=== PATIENT | female | born 2005 | race Caucasian/White ===

== ENCOUNTER 2025-01-14 08:09 | Emergency (ER) | payer MEDICAID, SELFPAY ==
--- OUTSIDE RECORDS SUMMARY | 2023-09-05 06:00 | XMS_ITS | Continuity of Care Document ---
Author Organization [facility] Address [id number] [address] Phone Care Team Providers Care Chrome Worker Name Role Phone Abhishek Loera DDS Unavailable Unavailable Allergies, Adverse Reactions, Alerts Substance Reaction Status Criticality No Known Allergies Active No Inform ation Medications Medication Instructions Dosage Effective Dates (start - stop) Status Comments Differin 0.1 % topical gel apply by topical route every day a thin layer to the affected area(s) before bedtime 0.00 - Active lamotrigine 200 mg tablet take 1 tablet by oral route 2 times every day 200 MG - Active Procedures Procedure Date Bitewings Four Films Intraoral Periapical First Film Intraoral Periapical Each Additional Film Intraoral Periapical Each Additional Film Intraoral Periapical Each Additional Film Treatment Plan Complete Prophylaxis Adult Topical Fluoride Varnish; Therapeutic Ap plication Periodic Oral Evaluation Established Patient Caries Moderate Risk Exempt From Sealant Measure Resin-Based Composite Two Surfaces, Anterior EDR Approval Note Bitewings Four Films Periodic Oral Evaluation Established Patient Prophylaxis Adult Topical Fluoride Varnish; Therapeutic Ap plication EDR Approval Note Resin-Based Composite One Surface, Posterior Panoramic Film Bitewings Four Films Periodic Oral Evaluation Established Patient Prophylaxis Adult Topical Fluoride Varnish; Therapeutic Ap plication Resin-Based Composite One Surface, Posterior Self-management Goals Reviewed Oral Hygiene Instructions Nutritional Counseling For Control Of De ntal Disea Exempt From Sealant Measure Bitewings Four Films Periodic Oral Evaluation Established Patient Prophylaxis Adult EDR Approval Note Bitewings Four Films Prophylaxis Adult Periodic Oral Evaluation Established Patient Treatment Plan Complete Caries Moderate Risk Exempt From Sealant Measure EDR Approval Note Resin-Based Composite One Surface, Posterior Resin-Based Composite One Surface, Posterior EDR Approval Note Caries High Risk Panoramic Film Bitewings Four Films Intraoral Periapical First Film Intraoral Periapical Each Additional Film Intraoral Periapical Each Additional Film Intraoral Periapical Each Additional Film Prophylaxis Adult Topical Fluoride Varnish; Therapeutic Ap plication Periodic Oral Evaluation Established Patient EDR Approval Note New Caries Lesion Caries High Risk Resin-Based Composite One Surface, Posterior Resin-Based Composite One Surface, Posterior Resin-Based Composite One Surface, Posterior Resin-Based Composite One Surface, Anterior EDR Approval Note Periodic Oral Evaluation Established Patient Bitewings Four Films Prophylaxis Adult Topical Fluoride Varnish; Therapeutic Ap plication EDR Approval Note Self-management Goals Reviewed Oral Hygiene Instructions Nutritional Counseling For Control Of De ntal Disea Caries Moderate Risk Exempt From Sealant Measure Resin-Based Composite One Surface, Posterior EDR Approval Note Bitewings Four Films Intraoral Periapical First Film Intraoral Periapical Each Additional Film Intraoral Periapical Each Additional Film Intraoral Periapical Each Additional Film Prophylaxis Adult Topical Fluoride Varnish; Therapeutic Ap plication Self-management Goals Reviewed Oral Hygiene Instructions Nutritional Counseling For Control Of De ntal Disea Caries High Risk Exempt From Sealant Measure Periodic Oral Evaluation Established Patient EDR Approval Note PATIENT LEFT W/O BEING SEEN Bitewings Four Films Prophylaxis Child Topical Fluoride Varnish; Therapeutic Ap plication Periodic Oral Evaluation Established Patient Caries Low Risk EDR Approval Note Resin-Based Composite One Surface, Posterior EDR Approval Note Resin-Based Composite One Surface, Posterior Sealant Per Tooth Sealant Per Tooth Sealant Per Tooth Sealant Per Tooth Oral Hygiene Instructions Nutritional Counseling For Control Of De ntal Disea Caries Moderate Risk EDR Approval Note Panoramic Film Bitewings Four Films Intraoral Periapical First Film Intraoral Periapical Each Additional Film Intraoral Periapical Each Additional Film Prophylaxis Child Topical Fluoride Varnish; Therapeutic Ap plication Comprehensive Oral Evaluatio n New Or Established Oral Hygiene Instructions Nutritional Counseling For Control Of De ntal Disea Caries Moderate Risk EDR Approval Note Advance Directives Directive Yes / No Effective Date File Name No Information Encounters Encounter Description Practice Location Reason(s) For Visit Diagnoses Date Provider Providers Copied on Encounter [facility], [id number] [place], [id number], [place] tel:[phone] [facility] Encounter for dental exam and cleaning w/o abnormal findings 4 Evaristo Weiss. [address] [place], [address], [place]. tel:[phone] Referring Provider: Abhishek Loera, [address] [place], [address]. tel:[phone] [facility], [id number] [place]65483JM[place], [address], [place] tel:[phone] [facility] No Information 3 Evaristo Weiss. [address] [place], [address], [place]. tel:[phone] Referring Provider: Abhishek Loera, [address] [place], [address]. tel:[phone] sulting Provider: Susie Valencia, [address] [place], [address] . tel:[phone] [facility], [id number] 779717UJ[place], [address], [place] tel:[phone] [facility] No Information 3 Evaristo Weiss. [address] [place], [address], [place]. tel:[phone] Referring Provider: Abhishek Loera, [address] [place], [address]. tel:[phone] [facility], [address] [id number] 762177VZ[place], [address], [place] tel:[phone] [facility] No Information 2 Chalino Conteh. [facility] [place], [address], [place]. tel:[phone] Referring Provider: Yady Allred, [address] [place] [address], [address]. tel:[phone] [facility], [id number] 458587R[place], [address], [place] tel:[phone] [facility] No Information 2 Winnie Salgado. [address], [place], [address], [place]. tel:[phone] Referring Provider: Damian Zhou, [address] [place], [address] . tel:[phone] [facility], [address] [id number] 669[place], [address], [place] tel:[phone] [facility] Encounter for dental exam and cleaning w/o abnormal findings 2 rEik Escobar. [address] [place], [address], [place]. tel:[phone] Referring Provider: Shawn Trimble, [address] [place], [address]. tel:[phone] sulting Provider: Susie Valencia, [address] [place], [address] . tel:[phone] [facility], [address] [id number] 334526XY[place], [address], [place] tel:[phone] [facility] No Information 2 Erik Escobar. [address] [place], [address], [place]. tel:[phone] Referring Provider: Shawn Trimble, [address] [place], [address]. tel:[phone] [facility], [address] [id number] 782288NC-Cl [place], [address], [place] tel:[phone] [facility] Encounter for dental exam and cleaning w/o abnormal findings 1 Erik Escobar. [address] [place], [address], [place]. tel:[phone] Referring Provider: Shawn Trimble, [address] [place], [address]. tel:[phone] sulting Provider: Chantal Kumar, [address] [place], [address] . tel:[phone] [facility], [address] [id number] 961087UK-[place], [address], [place] tel:[phone] [facility] Encounter for dental exam and cleaning w/o abnormal findings 0 No Information [facility], [address] [id number] 126506DJ-[place], [address], [place] tel:[phone] [facility] Encounter for dental exam and cleaning w/o abnormal findings 0 No Information [facility], [address] [id number] 745544GC-[place], [address], [place] tel:[phone] [facility] Encounter for dental exam and cleaning w/o abnormal findings 0-201 9 Erik Escobar. [address] [place], [address], . tel:[phone] Referring Provider: Shawn Trimble, [address] [place], [address]. tel:[phone] [facility], [address] [id number] 720313VL-[place], [address], [place] tel:[phone] [facility] Encounter for dental exam and cleaning w/o abnormal findings 9 Erik Escobar. [address] [place], [address], [place]. tel:[phone] Referring Provider: Shawn Trimble, [address] [place], [address]. tel:[phone] [facility], [address] [id number] 771638VB-Ir[place], [address], [place] tel:[phone] [facility] Encounter for dental exam and cleaning w/o abnormal findings 9 Winnie Salgado. [address], [place], [address], [place]. tel:[phone] Referring Provider: Damian Zhou, [address] [place], [address] . tel:[phone] [facility], [address] [id number] 074191CX-[place], [address], [place] tel:[phone] [facility] Encounter for dental exam and cleaning w/o abnormal findings 9 Winnie Salgado. [address], [place], [address], [place]. tel:[phone] Referring Provider: Damian Zhou, [address] [place], [address] . tel:[phone] [facility], [address] [id number] 097904AT-[place], [address], [place] tel:[phone] [facility] Encounter for dental exam and cleaning w/o abnormal findings 8 Winnie Salgado. [address], [place], [address], [place]. tel:[phone] Referring Provider: Damian Zhou, [address] [place], [address] . tel:[phone] [facility], [address] [id number] 782881XA-[place], [address], [place] tel:[phone] [facility] Encounter for dental exam and cleaning w/o abnormal findings 8 Rick Gant. [address] [place] [address], [address], [place]. tel:[phone] Referring Provider: Stalin Cabrera, [address] [place] [address], [address]. tel:[phone] [facility], [address] [id number] 444987RB-[place], [address], [place] tel:[phone] [facility] Encounter for dental exam and cleaning w/o abnormal findings 8 Rick Gant. [address] [place] [address], [address], [place]. tel:[phone] Referring Provider: Stalin Cabrera, [address] [place] [address], [address]. tel:[phone] [facility], [address] [id number] 130186SV-[place], [address], [place] tel:[phone] [facility] Encounter for dental exam and cleaning w/o abnormal findings 8 Rick Gant. [address] [place] [address], [address], [place]. tel:[phone] Referring Provider: Stalin Cabrera, [address] [place] [address], [address]. tel:[phone] [facility], [address] [id number] 083080VX-[place], [address], tel:[phone] [facility] Encounter for dental exam and cleaning w/o abnormal findings 7 Rick Gant. [address] [place] [address], [address], [place]. tel:[phone] Referring Provider: Stalin Cabrera, [address] [place] [address], [address]. tel:[phone] Family History Family Member Type Diagnosis Age At Onset Mother Problem (finding) Payers Payer name Insurance type Covered libertarian ID Authornikkie seay(s) D [employer] [id number] Social History Type Description Quantity Date Captured Comments Alcohol Use Details No Caffeine Use Details Unknown Tobacco Use Status No Information Smoking Status No Information Sex Female Sexual Orientation Decline To Specify Gender Identity Female Chief Complaint And Reason For Visit No Information Reason For Referral Reason For Referral No Information History Of Present Illness Encounter Date Complaint History Of Prese nt Illness No Information Functional Status Date Functional Assessmen t No Information Instructions Date Instruction Additional Infor mation Lifestyle education Related to D ental Examination Lifestyle education Related to D ental Examination Lifestyle education Related to D ental Examination Lifestyle education Related to D ental Examination Lifestyle education Related to D ental Examination Lifestyle education Related to D ental Examination Lifestyle education Related to D ental Examination Lifestyle education Related to D ental Examination Lifestyle education Related to D ental Examination Lifestyle education Related to D ental Examination Lifestyle education Related to D ental Examination Lifestyle education Related to D ental Examination Assessments Type Assessment Date No Information Patient Care Teams Name Effective Dates (start - stop) Status Members No Information
--- OUTSIDE RECORDS SUMMARY | 2023-09-10 02:45 | XMS_ITS ---
Author Organization [facility] Address [address] [place] [id number] Care Team Providers Care Gauger Chief Name Role Phone Harriett Camacho Primary Care Provider Ila Dumont [phone] REASON FOR VISIT Behavioral Health Social History Sex Assigned At : Social History Observation Description Sex Assigned At Female Encounters Encounter Location Date Provider Diagnosis [facility] [address] [address] 09/10/2023 Ila Dumont Plan Of Treatment No Information Progress Notes * Radha JUÁREZDOB:2004 (19 yo F)Acc No.[id number]:09/10/2023 Patient: Radha LEROY Provider: Estephanie DUMONT LPC :2005 A ge:18 Y S ex:Female Date:09/10/2023 Address:[address], [place] Pcp:Harriett Camacho Subjective: * Chief Complaints: * 1 . Behavioral Health. * Medical History: Objective: * Vitals: Assessment: Plan: * Treatment: * Billing Information: * Visit Code: * Procedure Codes: * Electronic signature of Shanita Dumont LPC on 01/14/2025 at 08:25 AM CDT Sign off status: Pending * Provider: Estephanie DUMONT LPC Date: 0 09/10/2023 Generated for Donnie zaldivar/Onel/Mari on: 0 01/14/2025 08:25 AM CDT
--- OUTSIDE RECORDS SUMMARY | 2023-09-17 02:45 | XMS_ITS ---
Author Organization [facility] Address [address] [place] [address] Care Team Providers Care Algorithm Design Engineer Name Role Phone Harriett Camacho Primary Care Provider Ila Dumont [phone] REASON FOR VISIT Behavioral Health Social History Sex Assigned At : Social History Observation Description Sex Assigned At Female Encounters Encounter Location Date Provider Diagnosis [facility] [address] [facility] [address] 09/17/2023 Ila Dumont Plan Of Treatment No Information Progress Notes * Radha JUÁREZDOB:2004 (19 yo F)Acc No.[id number]:09/17/2023 Patient: Radha LEROY Provider: Estephanie DUMONT LPC :2005 A ge:18 Y S ex:Female Date:09/17/2023 Address:[address], [place] Pcp:Harriett Camacho Subjective: * Chief Complaints: * 1 . Behavioral Health. * Medical History: Objective: * Vitals: Assessment: Plan: * Treatment: * Billing Information: * Visit Code: * Procedure Codes: * Electronic signature of Shanita Dumont LPC on 01/14/2025 at 08:24 AM CDT Sign off status: Pending * Provider: Estephanie DUMONT LPC Date: 0 09/17/2023 Generated for Donnie zaldivar/Onel/Mari on: 0 01/14/2025 08:24 AM CDT
--- OUTSIDE RECORDS SUMMARY | 2025-01-14 08:25 | XMS_ITS | Encounter Summary ---
Author Organization [facility] Address [address] [place] [address] Care Team Providers Care Datapower Consultant Name Role Phone Al Camarena MD Primary Care Provider [phone] Encounter Details Date Type Department Care Team (Late st Contact Info) Description 05/05/2007 Outpatient Historical [facility] Family Medicine [address] Kapoor [address] [place] [phone] Al Camarena MD [address] [place] [address] Dr Kapoor [address] [place] [address] Social History Tobacco Use Types Packs/Day Years Used Date Smoking Tobacco: Never Assessed Comments Unknown Sex and Gender Information Value Date Recorded Sex Assigned at Not on file Legal Sex Female 4:07 AM CITY ADMINISTRATOR Gender Identity Not on file Sexual Orientation Not on file documented as of this encounter Plan of Treatment Not on file documented as of this encounter Visit Diagnoses Not on filedocumented in this encounter Care Teams Datapower Consultant Relationship Specialty Start Date End Date Al Camarena MD [address] [place] [address] Dr Kapoor [address] [place] [address] PCP - General 05/05/07 documented as of this encounter
--- OUTSIDE RECORDS SUMMARY | 2025-01-14 08:25 | XMS_ITS | Encounter Summary ---
Author Organization [facility] Address [address] [place] [address] Care Team Providers Care Cigar Brander Name Role Phone Al Camarena MD Primary Care Provider [phone]- [phone] Encounter Details Date Type Department Care Team (Late st Contact Info) Description 04/08/2006 Outpatient Historical [facility] Medicine [place] [place] [address] Dr. Kapoor [address] [place] [phone] Al Camarena MD [address] [place] [phone] Acute Upper Respiratory Infections of Unspecified Site (Primary Dx); Viral Infection NEC Social History Tobacco Use Types Packs/Day Years Used Date Smoking Tobacco: Never Assessed Comments Unknown Sex and Gender Information Value Date Recorded Sex Assigned at Not on file Legal Sex Female 4:07 AM SHOT LIGHTER Gender Identity Not on file Sexual Orientation Not on file documented as of this encounter Plan of Treatment Not on file documented as of this encounter Visit Diagnoses Diagnosis Acute upper respiratory infections of unspecified site- Primary Other specified viral infection, in conditions classified elsewhere and of unspecified site documented in this encounter Care Teams Cigar Brander Relationship Specialty Start Date End Date Al Camarena MD [address] [place] [address] Dr [address] [place] [address] PCP - General 05/05/07 documented as of this encounter
--- OUTSIDE RECORDS SUMMARY | 2025-01-14 08:25 | XMS_ITS | Patient Health Record ---
Author Organization [facility] Address [address] [facility] [place] [id number] Care Team Providers Care Planning Division Superintendent Name Role Phone Harriett Camacho Primary Care Provider Ila Mora Unavailable [phone] Reason For Referral No Information Social History Tobacco Use: Social History Observation Description Date Details (start date - stop date) Never Smoker NA - NA Sex Assigned At : Social History Observation Description Sex Assigned At Female Tobacco Use/Smoking Question Answer Notes Are you a nonsmoker Alcohol Screen (Audit-C) Question Answer Notes Did you have a drink containing alcohol in the p ast year? No Points 0 Interpretation Negative Problems Problem Type SNOMED Code ICD Code Onset Dates Problem Status W/U Status Risk Notes Problem Generalized anxiety disorder (F41.1) Active confirmed Problem Social anxiety disorder (29446073) Social anxiety disorder (F40.10) Active confirmed Problem Depressive disorder (disorder) (76854895) Depression, unspecified depression type (F32.A) Active confirmed Plan Of Treatment No Information Insurance Providers Payer Name Payer Address Payer Phone Subscriber Number Group Number Insured Name Patient Relationship to Insured Coverage Start Date Coverage End Date [employer] [address] [address] [place] [id number] [phone] [id number] Radha Juárez Self - patient is the insured Medical (General) History Surgical History Surgery Date(Month/Year) appendectomy Hospitalization History Reason Date(Month/Year) appendectomy
--- OUTSIDE RECORDS SUMMARY | 2025-01-14 08:25 | XMS_ITS | Encounter Summary ---
Author Organization [facility] Address [address] [place] [address] Care Team Providers Care Banquet Houseperson Name Role Phone Al Camarena MD Primary Care Provider +1- [phone] Encounter Details Date Type Department Care Team (Late st Contact Info) Description 2005 Outpatient Historical [facility] Family Medicine [place] [place] [address] Dr. Kapoor [address] [place] [phone] Al Camarena MD [address] [place] [address] Dr Kapoor [address] [place] [phone] ACUTE BRONCHITIS (Primary Dx); THRUSH Social History Tobacco Use Types Packs/Day Years Used Date Smoking Tobacco: Never Assessed Comments Unknown Sex and Gender Information Value Date Recorded Sex Assigned at Not on file Legal Sex Female 4:07 AM CANOPY STRINGER Gender Identity Not on file Sexual Orientation Not on file documented as of this encounter Plan of Treatment Not on file documented as of this encounter Visit Diagnoses Diagnosis Acute bronchitis- Primary Candidiasis of mouth documented in this encounter Care Teams Banquet Houseperson Relationship Specialty Start Date End Date Al Camarena MD [address] [place] [address] Dr Kapoor [address] [place] [address] PCP - General 05/05/07 documented as of this encounter
--- OUTSIDE RECORDS SUMMARY | 2025-01-14 08:25 | XMS_ITS | Encounter Summary ---
Author Organization [facility] Address [address] [place] [address] Care Team Providers Care Heel Nailing Machine Operator Name Role Phone Al Camarena MD Primary Care Provider +1- [phone] Encounter Details Date Type Department Care Team (Latest Contact Info) Description 2005 Outpatient Historical [facility] Family Medicine [address] Kapoor [address] [place] [phone] Al Camarena MD [address] [place] [phone] [facility] (Primary Dx); Need for Prophylactic Vaccination with Unspecified Combined Vaccine; Vaccine for viral hepatitis; Vaccin Strep Pneumoniae Social History Tobacco Use Types Packs/Day Years Used Date Smoking Tobacco: Never Assessed Comments Unknown Sex and Gender Information Value Date Recorded Sex Assigned at Not on file Legal Sex Female 4:07 AM CLOTH BEAMER Gender Identity Not on file Sexual Orientation Not on file documented as of this encounter Plan of Treatment Not on file documented as of this encounter Visit Diagnoses Diagnosis [facility] health care- Primary Health supervision of foundling Need for prophylactic vaccination with unspecified combined vaccine Vaccine for viral hepatitis Need for prophylactic vaccination and inoculation against viral hepatitis Need for prophylactic vaccination against Streptococcus pneumoniae (pneumococcus) Need for prophylactic vaccination against streptococcus pneumoniae (pneumococcus) documented in this encounter Care Teams Heel Nailing Machine Operator Relationship Specialty Start Date End Date Al Camarena MD [address] [place] [address] [address] [place] [address] PCP - General 05/05/07 documented as of this encounter
--- OUTSIDE RECORDS SUMMARY | 2025-01-14 08:25 | XMS_ITS | Encounter Summary ---
Author Organization [facility] Address [address] [facility] Attn: Epic Prelude ADT RICHARD GONZALEZ [id number] Care Team Providers Care Logistics Planning Engineer Name Role Phone Al Camarena MD Primary Care Provider [phone] Encounter Details Date Type Department Care Team (Late st Contact Info) Description 2005 Inpatient Historical [facility]/DELIVERY (Primary Dx) Social History Tobacco Use Types Packs/Day Years Used Date Smoking Tobacco: Never Assessed Comments Unknown Sex and Gender Information Value Date Recorded Sex Assigned at Not on file Legal Sex Female 4:07 AM HOSIERY LOOPER Gender Identity Not on file Sexual Orientation Not on file documented as of this encounter Plan of Treatment Not on file documented as of this encounter Procedures Procedure Name Priority Date/Time Associated Diagnosis Comments BASIC CHEM/BILI PROFILE Routine 2005 4:03 AM HOSIERY LOOPER DIFFERENTIAL, MANUAL Routine 2005 4:03 AM HOSIERY LOOPER CBC WITH DIFFERENTIAL Routine 2005 4:03 AM HOSIERY LOOPER METABOLIC SCREEN Routine 2005 3:26 AM HOSIERY LOOPER POC GLUCOSE Routine 2005 5:53 PM HOSIERY LOOPER POC GLUCOSE Routine 2005 12:10 PM HOSIERY LOOPER DIFFERENTIAL, MANUAL Routine 2005 6:07 AM HOSIERY LOOPER CBC WITH DIFFERENTIAL Routine 2005 6:07 AM HOSIERY LOOPER BASIC METABOLIC PANEL Routine 2005 5:50 AM HOSIERY LOOPER POC GLUCOSE Routine 2005 5:43 AM HOSIERY LOOPER POC GLUCOSE Routine 2005 11:54 PM HOSIERY LOOPER BASIC METABOLIC PANEL Routine 2005 6:17 PM HOSIERY LOOPER POC GLUCOSE Routine 2005 6:12 PM HOSIERY LOOPER POC GLUCOSE Routine 2005 2:56 PM HOSIERY LOOPER POC GLUCOSE Routine 2005 11:35 AM HOSIERY LOOPER BASIC CHEM/BILI PROFILE Routine 2005 3:40 AM HOSIERY LOOPER DIFFERENTIAL, MANUAL Routine 2005 3:40 AM HOSIERY LOOPER CBC WITH DIFFERENTIAL Routine 2005 3:40 AM HOSIERY LOOPER POC GLUCOSE Routine 2005 3:38 AM HOSIERY LOOPER POC GLUCOSE Routine 2005 8:52 PM HOSIERY LOOPER DIFFERENTIAL, MANUAL Routine 2005 5:02 PM HOSIERY LOOPER CBC WITH DIFFERENTIAL Routine 2005 5:02 PM HOSIERY LOOPER TRIGLYCERIDE Routine 2005 5:02 PM HOSIERY LOOPER PHOSPHORUS Routine 2005 5:02 PM HOSIERY LOOPER MAGNESIUM LEVEL Routine 2005 5:02 PM HOSIERY LOOPER BASIC METABOLIC PANEL Routine 2005 5:02 PM HOSIERY LOOPER POC GLUCOSE Routine 2005 4:53 PM HOSIERY LOOPER POC GLUCOSE Routine 2005 11:35 AM HOSIERY LOOPER BASIC CHEM/BILI PROFILE Routine 2005 4:52 AM HOSIERY LOOPER DIFFERENTIAL, MANUAL Routine 2005 4:52 AM HOSIERY LOOPER CBC WITH DIFFERENTIAL Routine 2005 4:52 AM HOSIERY LOOPER POC GLUCOSE Routine 2005 4:39 AM HOSIERY LOOPER POC GLUCOSE Routine 2005 11:18 PM HOSIERY LOOPER POC GLUCOSE Routine 2005 7:53 PM HOSIERY LOOPER POC GLUCOSE Routine 2005 6:35 PM HOSIERY LOOPER DIFFERENTIAL, MANUAL Routine 2005 6:00 PM HOSIERY LOOPER CBC WITH DIFFERENTIAL Routine 2005 6:00 PM HOSIERY LOOPER MAGNESIUM LEVEL Routine 2005 6:00 PM HOSIERY LOOPER POC GLUCOSE Routine 2005 5:39 PM HOSIERY LOOPER POC GLUCOSE Routine 2005 4:49 PM HOSIERY LOOPER documented in this encounter Results * (ABNORMAL) DIFFERENTIAL, MANUAL (2005 4:03 AM HOSIERY LOOPER) NEUTROPHILS, SEG 59(H) 15 - 35 % INT ERFACE SYSTEM LYMPHOCYTES 26(L) 43 - 53 % INTERFAC E SYSTEM MONOCYTE 14(H) 8 - 9 % INTERFACE SYSTEM EOSINOPHILS 1 0 - 3 % INTERFAC E SYSTEM PLATELET EST. Normal Normal INTERF NAKUL SYSTEM RBC MORPHOLOGY Abnormal(A ) Normal INTERFACE SYSTEM ANISOCYTOSIS 1+(A) None Seen INTERFA CE SYSTEM POIKILOCYTES 1+(A) None Seen INTERFA CE SYSTEM POLYCHROMASIA 1+(A) None Seen INTERF NAKUL SYSTEM 2005 4:03 AM HOSIERY LOOPER Reta Mcgowan MD HEMATOLOGY O RDERABLES COM Final Result Performing Organization Address City/[facility] Co de Phone Number INTERFACE SYSTEM Refer to clinic/hospital department * (ABNORMAL) PANEL 1 (2005 4:03 AM HOSIERY LOOPER) TRIGLYCERIDE 55 0 - 158 mg/dL INTERFACE SYSTEM GLUCOSE 70 50 - 80 mg/dL INTERFACE SYSTEM BUN 4(L) 7 - 17 mg/dL INTERFACE SYSTEM CREATININE 0.6 0.2 - 0.7 mg/dL INTERFACE SYSTEM SODIUM 136 136 - 145 mEq/L INTERFACE SYSTEM POTASSIUM 5.3(H) 3.5 - 5.0 mEq/L INTERFACE SYSTEM CO2 23 22 - 32 mmol/l INTERFACE SYSTEM CHLORIDE 107 95 - 110 mEq/L INTERFACE SYSTEM CALCIUM 10.0 8.4 - 10.5 mg/dL INTERFACE SYSTEM PHOSPHORUS 8.1 4.2 - 9.0 mg/dL INTERFACE SYSTEM MAGNESIUM 2.7(H) 1.6 - 2.3 mg/dL INTERFACE SYSTEM ANION GAP 11 9 - 20 mEq/L INTERFACE SYSTEM OSMOLALITY, CALCULATED 278 275 - 295 mOsm/Kg INTERFACE SYSTEM 2005 4:03 AM HOSIERY LOOPER Reta Mcgowan MD CHEMISTRY OR DERABLES Final Result Performing Organization Address City/[facility]/ZIP Co de Phone Number INTERFACE SYSTEM Refer to clinic/hospital department * (ABNORMAL) CBC WITH DIFFERENTIAL (2005 4:03 AM HOSIERY LOOPER) WBC 11.1 9.4 - 34.0 K/ul INTERFACE SYSTEM RBC 4.08 3.60 - 6.60 Mil/ul INTERFACE SYSTEM HEMOGLOBIN 15.9 14.2 - 17.2 g/dL INTERFACE SYSTEM HEMATOCRIT 46.9(L) 47.0 - 57.0 % INTERFACE SYSTEM MCV 115.0 95.0 - 118.0 Fl INTERFACE SYSTEM MCH 39.0(H) 31.0 - 37.0 pg INTERFACE SYSTEM MCHC 33.9 31.0 - 37.0 g/dL INTERFACE SYSTEM RDW 15.6(H) 11.0 - 14.5 % INTERFACE SYSTEM PLATELETS 261 140 - 440 K/ul INTERFACE SYSTEM MPV 10.4 8.9 - 12.8 Fl INTERFACE SYSTEM 2005 4:03 AM HOSIERY LOOPER us Reta Mcgowan MD HEMATOLOGY O RDERABLES Final Result Performing Organization Address [facility] Co de Phone Number INTERFACE SYSTEM Refer to clinic/hospital department * METABOLIC SCREEN (2005 3:26 AM HOSIERY LOOPER) PKU Sent to Reference Lab INTERFACE SYSTEM 2005 3:26 AM HOSIERY LOOPER us Reta Mcgowan MD CHEMISTRY OR DERABLES Final Result Performing Organization Address [facility] Co de Phone Number INTERFACE SYSTEM Refer to clinic/hospital department * POC GLUCOSE (2005 5:53 PM HOSIERY LOOPER) GLUCOSE POC 70 50 - 80 mg/dL INTERFACE SYSTEM 2005 5:53 PM HOSIERY LOOPER us Reta Mcgowan MD POINT OF CAR E TESTING Final Result Performing Organization Address [facility]/ZIP Co de Phone Number INTERFACE SYSTEM Refer to clinic/hospital department * (ABNORMAL) POC GLUCOSE (2005 12:10 PM HOSIERY LOOPER) GLUCOSE POC 86(H) 50 - 80 mg/dL INTERFACE SYSTEM 2005 12:1 0 PM HOSIERY LOOPER us Reta Mcgowan MD POINT OF CAR E TESTING Final Result Performing Organization Address [facility] de Phone Number INTERFACE SYSTEM Refer to clinic/hospital department * (ABNORMAL) DIFFERENTIAL, MANUAL (2005 6:07 AM HOSIERY LOOPER) NEUTROPHILS, SEG 50(H) 15 - 35 % INT ERFACE SYSTEM BANDS 6(L) 10 - 18 % INTERFACE SYSTEM LYMPHOCYTES 29 26 - 36 % INTERFAC E SYSTEM MONOCYTE 9(H) 5 - 6 % INTERFACE SYSTEM EOSINOPHILS 6(H) 0 - 3 % INTERFAC E SYSTEM PLATELET EST. Normal Normal INTERF NAKUL SYSTEM RBC MORPHOLOGY Abnormal(A ) Normal INTERFACE SYSTEM ANISOCYTOSIS 1+(A) None Seen INTERFA CE SYSTEM POIKILOCYTES 1+(A) None Seen INTERFA CE SYSTEM POLYCHROMASIA 1+(A) None Seen INTERF NAKUL SYSTEM 2005 6:07 AM HOSIERY LOOPER Consolaerasmo Mcgowan MD HEMATOLOGY O RDERABLES COM Final Result Performing Organization Address [facility] de Phone Number INTERFACE SYSTEM Refer to clinic/hospital department * (ABNORMAL) CBC WITH DIFFERENTIAL (2005 6:07 AM HOSIERY LOOPER) Pathologist [facility] WBC 12.8 9.4 - 34.0 K/ul INTERFACE SYSTEM RBC 4.67(L) 4.70 - 6.10 Mil/ul INTERFACE SYSTEM HEMOGLOBIN 18.0 17.4 - 22.2 g/dL INTERFACE SYSTEM HEMATOCRIT 49.6(L) 58.0 - 74.0 % INTERFACE SYSTEM MCV 106.2(L) 108.0 - 136.0 Fl INTERFACE SYSTEM MCH 38.5(H) 31.0 - 37.0 pg INTERFACE SYSTEM MCHC 36.3 31.0 - 37.0 g/dL INTERFACE SYSTEM RDW 15.0(H) 11.0 - 14.5 % INTERFACE SYSTEM PLATELETS 239 140 - 440 K/ul INTERFACE SYSTEM MPV 9.6 8.9 - 12.8 Fl INTERFACE SYSTEM 2005 6:07 AM HOSIERY LOOPER Reta Mcgowan MD HEMATOLOGY O RDERABLES Final Result Performing Organization Address [facility] Phone Number INTERFACE SYSTEM Refer to clinic/hospital department * (ABNORMAL) BASIC METABOLIC PANEL (2005 5:50 AM HOSIERY LOOPER) GLUCOSE 58 50 - 80 mg/dL INTERFACE SYSTEM BUN 6(L) 7 - 17 mg/dL INTERFACE SYSTEM CREATININE 0.6 0.2 - 0.7 mg/dL INTERFACE SYSTEM SODIUM 134(L) 136 - 145 mEq/L INTERFACE SYSTEM POTASSIUM 6.0(H) 3.5 - 5.0 mEq/L INTERFACE SYSTEM Comment:Specimen slightly he molyzed CHLORIDE 104 95 - 110 mEq/L INTERFACE SYSTEM CO2 25 22 - 32 mmol/l INTERFACE SYSTEM ANION GAP 11 9 - 20 mEq/L INTERFACE SYSTEM OSMOLALITY, CALCULATED 276 275 - 295 mOsm/Kg INTERFACE SYSTEM CALCIUM 9.2 8.4 - 10.5 mg/dL INTERFACE SYSTEM 2005 5:50 AM HOSIERY LOOPER us Reta Mcgowan MD CHEMISTRY OR DERABLES Final Result Performing Organization Address [facility] Phone Number INTERFACE SYSTEM Refer to clinic/hospital department * POC GLUCOSE (2005 5:43 AM HOSIERY LOOPER) GLUCOSE POC 67 50 - 80 mg/dL INTERFACE SYSTEM 2005 5:43 AM HOSIERY LOOPER us Reta Mcgowan MD POINT OF CAR E TESTING Final Result Performing Organization Address [facility] Phone Number INTERFACE SYSTEM Refer to clinic/hospital department * (ABNORMAL) POC GLUCOSE (2005 11:54 PM HOSIERY LOOPER) GLUCOSE POC 87(H) 50 - 80 mg/dL INTERFACE SYSTEM 2005 11:5 4 PM HOSIERY LOOPER us Reta Mcgowan MD POINT OF CAR E TESTING Final Result Performing Organization Address [facility] Phone Number INTERFACE SYSTEM Refer to clinic/hospital department * (ABNORMAL) BASIC METABOLIC PANEL (2005 6:17 PM HOSIERY LOOPER) GLUCOSE 75 50 - 80 mg/dL INTERFACE SYSTEM BUN 5(L) 7 - 17 mg/dL INTERFACE SYSTEM CREATININE 0.7 0.2 - 0.7 mg/dL INTERFACE SYSTEM SODIUM 136 136 - 145 mEq/L INTERFACE SYSTEM POTASSIUM 6.4(H) 3.5 - 5.0 mEq/L INTERFACE SYSTEM CHLORIDE 107 95 - 110 mEq/L INTERFACE SYSTEM CO2 24 22 - 32 mmol/l INTERFACE SYSTEM ANION GAP 11 9 - 20 mEq/L INTERFACE SYSTEM OSMOLALITY, CALCULATED 281 275 - 295 mOsm/Kg INTERFACE SYSTEM CALCIUM 9.3 8.4 - 10.5 mg/dL INTERFACE SYSTEM 2005 6:17 PM HOSIERY LOOPER us Reta Mcgowan MD CHEMISTRY OR DERABLES Final Result Performing Organization Address [facility] Co de Phone Number INTERFACE SYSTEM Refer to clinic/hospital department * POC GLUCOSE (2005 6:12 PM HOSIERY LOOPER) GLUCOSE POC 79 50 - 80 mg/dL INTERFACE SYSTEM 2005 6:12 PM HOSIERY LOOPER us Reta Mcgowan MD POINT OF CAR E TESTING Final Result Performing Organization Address [facility]/ZIP Co de Phone Number INTERFACE SYSTEM Refer to clinic/hospital department * POC GLUCOSE (2005 2:56 PM HOSIERY LOOPER) GLUCOSE POC 72 50 - 80 mg/dL INTERFACE SYSTEM 2005 2:56 PM HOSIERY LOOPER us Reta Mcgowan MD POINT OF CAR E TESTING Final Result Performing Organization Address [facility] Co de Phone Number INTERFACE SYSTEM Refer to clinic/hospital department * POC GLUCOSE (2005 11:35 AM HOSIERY LOOPER) GLUCOSE POC 75 50 - 80 mg/dL INTERFACE SYSTEM 2005 11:3 5 AM HOSIERY LOOPER us Reta Mcgowan MD POINT OF CAR E TESTING Final Result Performing Organization Address [facility] Phone Number INTERFACE SYSTEM Refer to clinic/hospital department * (ABNORMAL) DIFFERENTIAL, MANUAL (2005 3:40 AM HOSIERY LOOPER) NEUTROPHILS, SEG 46 32 - 62 % INT ERFACE SYSTEM LYMPHOCYTES 49(H) 26 - 36 % INTERFAC E SYSTEM MONOCYTE 5 5 - 6 % INTERFACE SYSTEM PLATELET EST. Normal Normal INTERF [place] SYSTEM RBC MORPHOLOGY Abnormal(A ) Normal INTERFACE SYSTEM ANISOCYTOSIS 1+(A) None Seen INTERFA CE SYSTEM POIKILOCYTES 1+(A) None Seen INTERFA CE SYSTEM POLYCHROMASIA 1+(A) None Seen INTERF NAKUL SYSTEM 2005 3:40 AM HOSIERY LOOPER Reta Mcgowan MD HEMATOLOGY O RDERABLES COM Final Result Performing Organization Address [facility] de Phone Number INTERFACE SYSTEM Refer to clinic/hospital department * (ABNORMAL) CBC WITH DIFFERENTIAL (2005 3:40 AM HOSIERY LOOPER) WBC 10.7 9.4 - 34.0 K/ul INTERFACE SYSTEM RBC 4.78 4.70 - 6.10 Mil/ul INTERFACE SYSTEM HEMOGLOBIN 18.6 17.4 - 22.2 g/dL INTERFACE SYSTEM HEMATOCRIT 51.8(L) 58.0 - 74.0 % INTERFACE SYSTEM MCV 108.4 108.0 - 136.0 Fl INTERFACE SYSTEM MCH 38.9(H) 31.0 - 37.0 pg INTERFACE SYSTEM MCHC 35.9 31.0 - 37.0 g/dL INTERFACE SYSTEM RDW 15.4(H) 11.0 - 14.5 % INTERFACE SYSTEM PLATELETS 210 140 - 440 K/ul INTERFACE SYSTEM MPV 10.0 8.9 - 12.8 Fl INTERFACE SYSTEM 2005 3:40 AM HOSIERY LOOPER us Reta Mcgowan MD HEMATOLOGY O RDERABLES Final Result INTERFACE SYSTEM Refer to clinic/hospital department * (ABNORMAL) PANEL 1 (2005 3:40 AM HOSIERY LOOPER) TRIGLYCERIDE 68 0 - 158 mg/dL INTERFACE SYSTEM GLUCOSE 87(H) 50 - 80 mg/dL INTERFACE SYSTEM BUN 6(L) 7 - 17 mg/dL INTERFACE SYSTEM CREATININE 0.7 0.2 - 0.7 mg/dL INTERFACE SYSTEM SODIUM 137 136 - 145 mEq/L INTERFACE SYSTEM POTASSIUM 4.8 3.5 - 5.0 mEq/L INTERFACE SYSTEM CO2 26 22 - 32 mmol/l INTERFACE SYSTEM CHLORIDE 104 95 - 110 mEq/L INTERFACE SYSTEM CALCIUM 8.5 8.4 - 10.5 mg/dL INTERFACE SYSTEM PHOSPHORUS 7.9 4.2 - 9.0 mg/dL INTERFACE SYSTEM MAGNESIUM 3.6(H) 1.6 - 2.3 mg/dL INTERFACE SYSTEM ANION GAP 12 9 - 20 mEq/L INTERFACE SYSTEM OSMOLALITY, CALCULATED 281 275 - 295 mOsm/Kg INTERFACE SYSTEM 2005 3:40 AM HOSIERY LOOPER Reta Mcgowan MD CHEMISTRY OR DERABLES Final Result Performing Organization Address [facility] Co sc Phone Number INTERFACE SYSTEM Refer to clinic/hospital department * (ABNORMAL) POC GLUCOSE (2005 3:38 AM HOSIERY LOOPER) GLUCOSE POC 92(H) 50 - 80 mg/dL INTERFACE SYSTEM 2005 3:38 AM HOSIERY LOOPER Reta Mcgowan MD POINT OF CAR E TESTING Final Result Performing Organization Address City/State/[facility] Co de Phone Number INTERFACE SYSTEM Refer to clinic/hospital department * (ABNORMAL) POC GLUCOSE (2005 8:52 PM HOSIERY LOOPER) GLUCOSE POC 84(H) 50 - 80 mg/dL INTERFACE SYSTEM 2005 8:52 PM HOSIERY LOOPER Reta Mcgowan MD POINT OF CAR E TESTING Final Result Performing Organization Address [facility] [place] de Phone Number INTERFACE SYSTEM Refer to clinic/hospital department * (ABNORMAL) DIFFERENTIAL, MANUAL (2005 5:02 PM HOSIERY LOOPER) NEUTROPHILS, SEG 41 32 - 62 % INT ERFACE SYSTEM BANDS 1(L) 10 - 18 % INTERFACE SYSTEM LYMPHOCYTES 41(H) 26 - 36 % INTERFAC E SYSTEM MONOCYTE 15(H) 5 - 6 % INTERFACE SYSTEM EOSINOPHILS 2 0 - 3 % INTERFAC E SYSTEM NRBC 1 <=1 INTERFACE SYSTEM PLATELET EST. Normal Normal INTERF NAKUL SYSTEM RBC MORPHOLOGY Abnormal(A ) Normal INTERFACE SYSTEM ANISOCYTOSIS 1+(A) None Seen INTERFA CE SYSTEM POIKILOCYTES 1+(A) None Seen INTERFA CE SYSTEM POLYCHROMASIA 1+(A) None Seen INTERF NAKUL SYSTEM 2005 5:02 PM HOSIERY LOOPER Reta Mcgowan MD HEMATOLOGY O RDERABLES COM Final Result Performing Organization Address [facility] Phone Number INTERFACE SYSTEM Refer to clinic/hospital department * (ABNORMAL) CBC WITH DIFFERENTIAL (2005 5:02 PM HOSIERY LOOPER) WBC 11.5 9.4 - 34.0 K/ul INTERFACE SYSTEM Comment: WBC Corrected for Nucleated RBC'S RBC 4.92 4.00 - 6.60 Mil/ul INTERFACE SYSTEM HEMOGLOBIN 19.2 14.5 - 22.5 g/dL INTERFACE SYSTEM HEMATOCRIT 53.9 45.0 - 67.0 % INTERFACE SYSTEM MCV 109.6 95.0 - 121.0 Fl INTERFACE SYSTEM MCH 39.0(H) 31.0 - 37.0 pg INTERFACE SYSTEM MCHC 35.6 31.0 - 37.0 g/dL INTERFACE SYSTEM RDW 15.7(H) 11.0 - 14.5 % INTERFACE SYSTEM PLATELETS 211 140 - 440 K/ul INTERFACE SYSTEM MPV 9.7 8.9 - 12.8 Fl INTERFACE SYSTEM NEUTROPHILS 47.9 42.2 - 75.2 % INTERFACE SYSTEM LYMPHOCYTES 37.7(H) 26.0 - 36.8 % INTERFACE SYSTEM MONOCYTES 12.2(H) 5.0 - 6.0 % INTERFACE SYSTEM EOSINOPHILS 1.9 0.0 - 7.0 % INTERFACE SYSTEM BASOPHILS 0.3 0.0 - 1.0 % INTERFACE SYSTEM NEUTROPHIL ABSOLUTE 5.5 2.0 - 8.0 K/uL INTERFACE SYSTEM LYMPHOCYTE ABSOLUTE 4.4(H) 1.2 - 4.0 K/ul INTERFACE SYSTEM MONOCYTE ABSOLUTE 1.4(H) 0.1 - 0.6 K/ul INTERFACE SYSTEM EOSINOPHIL ABSOLUTE 0.2 0.0 - 0.7 K/ul INTERFACE SYSTEM BASOPHILS ABSOLUTE 0.0 0.0 - 0.2 K/ul INTERFACE SYSTEM NRBC 1 <=1 INTERFACE SYSTEM 2005 5:02 PM HOSIERY LOOPER Reta Mcgowan MD HEMATOLOGY O RDERABLES Final Result Performing Organization Address [facility] Phone Number INTERFACE SYSTEM Refer to clinic/hospital department * (ABNORMAL) BASIC METABOLIC PANEL (2005 5:02 PM HOSIERY LOOPER) GLUCOSE 86(H) 50 - 80 mg/dL INTERFACE SYSTEM BUN 7 7 - 17 mg/dL INTERFACE SYSTEM CREATININE 0.8(H) 0.2 - 0.7 mg/dL INTERFACE SYSTEM SODIUM 137 136 - 145 mEq/L INTERFACE SYSTEM POTASSIUM 5.6(H) 3.5 - 5.0 mEq/L INTERFACE SYSTEM CHLORIDE 106 95 - 110 mEq/L INTERFACE SYSTEM CO2 23 22 - 32 mmol/l INTERFACE SYSTEM ANION GAP 14 9 - 20 mEq/L INTERFACE SYSTEM OSMOLALITY, CALCULATED 283 275 - 295 mOsm/Kg INTERFACE SYSTEM CALCIUM 8.7 8.4 - 10.5 mg/dL INTERFACE SYSTEM 2005 5:02 PM HOSIERY LOOPER Reta Mcgowan MD CHEMISTRY OR DERABLES Final Result Performing Organization Address [facility] Co de Phone Number INTERFACE SYSTEM Refer to clinic/hospital department * MAGNESIUM LEVEL (2005 5:02 PM HOSIERY LOOPER) MAGNESIUM 4.1 1.6 - 2.3 mg/dL INTERFACE SYSTEM 2005 5:02 PM HOSIERY LOOPER Reta Mcgowan MD CHEMISTRY OR DERABLES Final Result Performing Organization Address [facility] Phone Number INTERFACE SYSTEM Refer to clinic/hospital department * PHOSPHORUS (2005 5:02 PM HOSIERY LOOPER) PHOSPHORUS 7.8 4.2 - 9.0 mg/dL INTERFACE SYSTEM 2005 5:02 PM HOSIERY LOOPER Reta Mcgowan MD CHEMISTRY OR DERABLES Final Result Performing Organization Address [facility] Phone Number INTERFACE SYSTEM Refer to clinic/hospital department * TRIGLYCERIDE (2005 5:02 PM HOSIERY LOOPER) TRIGLYCERIDE 65 0 - 158 mg/dL INTERFACE SYSTEM 2005 5:02 PM HOSIERY LOOPER us Reta Mcgowan MD CHEMISTRY OR DERABLES Final Result Performing Organization Address [facility] Phone Number INTERFACE SYSTEM Refer to clinic/hospital department * (ABNORMAL) POC GLUCOSE (2005 4:53 PM HOSIERY LOOPER) GLUCOSE POC 103(H) 50 - 80 mg/dL INTERFACE SYSTEM 2005 4:53 PM HOSIERY LOOPER us Reta Mcgowan MD POINT OF CAR E TESTING Final Result Performing Organization Address [facility] [place] de Phone Number INTERFACE SYSTEM Refer to clinic/hospital department * (ABNORMAL) POC GLUCOSE (2005 11:35 AM HOSIERY LOOPER) GLUCOSE POC 83(H) 50 - 80 mg/dL INTERFACE SYSTEM 2005 11:3 5 AM HOSIERY LOOPER Reta Mcgowan MD POINT OF CAR E TESTING Final Result Performing Organization Address [facility] [place] de Phone Number INTERFACE SYSTEM Refer to clinic/hospital department * (ABNORMAL) DIFFERENTIAL, MANUAL (2005 4:52 AM HOSIERY LOOPER) NEUTROPHILS, SEG 46 32 - 62 % INT ERFACE SYSTEM BANDS 1(L) 10 - 18 % INTERFACE SYSTEM LYMPHOCYTES 42(H) 26 - 36 % INTERFAC E SYSTEM MONOCYTE 10(H) 5 - 6 % INTERFACE SYSTEM EOSINOPHILS 1 0 - 3 % INTERFAC E SYSTEM PLATELET EST. Normal Normal INTERF NAK[place] SYSTEM RBC MORPHOLOGY Abnormal(A ) Normal INTERFACE SYSTEM ANISOCYTOSIS 1+(A) None Seen INTERFA CE SYSTEM POIKILOCYTES 1+(A) None Seen INTERFA CE SYSTEM POLYCHROMASIA 1+(A) None Seen INTERF NAKUL SYSTEM 2005 4:52 AM HOSIERY LOOPER Reta Mcgowan MD HEMATOLOGY O RDERABLES COM Final Result Performing Organization Address [facility] [place] de Phone Number INTERFACE SYSTEM Refer to clinic/hospital department * (ABNORMAL) CBC WITH DIFFERENTIAL (2005 4:52 AM HOSIERY LOOPER) WBC 11.2 9.4 - 34.0 K/ul INTERFACE SYSTEM Comment: WBC Corrected for Nucleated RBC'S RBC 4.79 4.00 - 6.60 Mil/ul INTERFACE SYSTEM HEMOGLOBIN 18.6 14.5 - 22.5 g/dL INTERFACE SYSTEM HEMATOCRIT 52.3 45.0 - 67.0 % INTERFACE SYSTEM MCV 109.2 95.0 - 121.0 Fl INTERFACE SYSTEM MCH 38.8(H) 31.0 - 37.0 pg INTERFACE SYSTEM MCHC 35.6 31.0 - 37.0 g/dL INTERFACE SYSTEM RDW 15.8(H) 11.0 - 14.5 % INTERFACE SYSTEM PLATELETS 152 140 - 440 K/ul INTERFACE SYSTEM MPV 10.2 8.9 - 12.8 Fl INTERFACE SYSTEM NRBC 1 <=1 INTERFACE SYSTEM 2005 4:52 AM HOSIERY LOOPER us Reta Mcgowan MD HEMATOLOGY O RDERABLES Final Result Performing Organization Address [facility] Co de Phone Number INTERFACE SYSTEM Refer to clinic/hospital department * (ABNORMAL) PANEL 1 (2005 4:52 AM HOSIERY LOOPER) TRIGLYCERIDE 41 0 - 158 mg/dL INTERFACE SYSTEM CREATININE 0.9(H) 0.2 - 0.7 mg/dL INTERFACE SYSTEM GLUCOSE 119(H) 50 - 80 mg/dL INTERFACE SYSTEM BUN 9 7 - 17 mg/dL INTERFACE SYSTEM SODIUM 139 136 - 145 mEq/L INTERFACE SYSTEM POTASSIUM 5.0 3.5 - 5.0 mEq/L INTERFACE SYSTEM CO2 23 22 - 32 mmol/l INTERFACE SYSTEM CHLORIDE 107 95 - 110 mEq/L INTERFACE SYSTEM CALCIUM 8.0(L) 8.4 - 10.5 mg/dL INTERFACE SYSTEM PHOSPHORUS 6.8 4.2 - 9.0 mg/dL INTERFACE SYSTEM MAGNESIUM 4.3(H) 1.6 - 2.3 mg/dL INTERFACE SYSTEM ANION GAP 14 9 - 20 mEq/L INTERFACE SYSTEM OSMOLALITY, CALCULATED 288 275 - 295 mOsm/Kg INTERFACE SYSTEM 2005 4:52 AM HOSIERY LOOPER Reta Mcgowan MD CHEMISTRY OR DERABLES Final Result Performing Organization Address [facility] Phone Number INTERFACE SYSTEM Refer to clinic/hospital department * (ABNORMAL) POC GLUCOSE (2005 4:39 AM HOSIERY LOOPER) GLUCOSE POC 137(H) 50 - 80 mg/dL INTERFACE SYSTEM 2005 4:39 AM HOSIERY LOOPER us Reta Mcgowan MD POINT OF CAR E TESTING Final Result Performing Organization Address [facility] Co de Phone Number INTERFACE SYSTEM Refer to clinic/hospital department * (ABNORMAL) POC GLUCOSE (2005 11:18 PM HOSIERY LOOPER) GLUCOSE POC 105(H) 50 - 80 mg/dL INTERFACE SYSTEM 2005 11:1 8 PM HOSIERY LOOPER Reta Mcgowan MD POINT OF CAR E TESTING Final Result Performing Organization Address [facility] Phone Number INTERFACE SYSTEM Refer to clinic/hospital department * (ABNORMAL) POC GLUCOSE (2005 7:53 PM HOSIERY LOOPER) GLUCOSE POC 82(H) 50 - 80 mg/dL INTERFACE SYSTEM 2005 7:53 PM HOSIERY LOOPER us Reta Mcgowan MD POINT OF CAR E TESTING Final Result Performing Organization Address [facility] Phone Number INTERFACE SYSTEM Refer to clinic/hospital department * (ABNORMAL) POC GLUCOSE (2005 6:35 PM HOSIERY LOOPER) GLUCOSE POC 96(H) 50 - 80 mg/dL INTERFACE SYSTEM 2005 6:35 PM HOSIERY LOOPER us Reta Mcgowan MD POINT OF CAR E TESTING Final Result Performing Organization Address [facility] Phone Number INTERFACE SYSTEM Refer to clinic/hospital department * (ABNORMAL) MAGNESIUM LEVEL (2005 6:00 PM HOSIERY LOOPER) MAGNESIUM 5.0(H) 1.6 - 2.3 mg/dL INTERFACE SYSTEM Comment: Specimen moderately hemolyzed. Hemolyzed specimen gively falsely elevated results due to intracellular Mg. 2005 6:00 PM HOSIERY LOOPER us Reta Mcgowan MD CHEMISTRY OR DERABLES Final Result Performing Organization Address [facility] Phone Number INTERFACE SYSTEM Refer to clinic/hospital department * (ABNORMAL) DIFFERENTIAL, MANUAL (2005 6:00 PM HOSIERY LOOPER) NEUTROPHILS, SEG 43 32 - 62 % INT ERFACE SYSTEM LYMPHOCYTES 45(H) 26 - 36 % INTERFAC E SYSTEM Comment:FEW REACTIVE LYMPHS MONOCYTE 11(H) 5 - 6 % INTERFACE SYSTEM EOSINOPHILS 1 0 - 3 % INTERFAC E SYSTEM PLATELET EST. Normal Normal INTERF NAKUL SYSTEM RBC MORPHOLOGY Abnormal(A ) Normal INTERFACE SYSTEM ANISOCYTOSIS 1+(A) None Seen INTERFA CE SYSTEM POIKILOCYTES 1+(A) None Seen INTERFA CE SYSTEM POLYCHROMASIA 1+(A) None Seen INTERF NAKUL SYSTEM 2005 6:00 PM HOSIERY LOOPER Consijeoma Mcgowan MD HEMATOLOGY O RDERABLES COM Final Result INTERFACE SYSTEM Refer to clinic/hospital department * (ABNORMAL) CBC WITH DIFFERENTIAL (2005 6:00 PM HOSIERY LOOPER) [facility] WBC 8.6(L) 9.0 - 30.0 K/ul INTERFACE SYSTEM RBC 4.60 4.10 - 5.10 Mil/ul INTERFACE SYSTEM HEMOGLOBIN 18.1 13.5 - 19.5 g/dL INTERFACE SYSTEM HEMATOCRIT 51.2 42.0 - 60.0 % INTERFACE SYSTEM MCV 111.3 107.0 - 119.0 Fl INTERFACE SYSTEM MCH 39.3(H) 31.0 - 37.0 pg INTERFACE SYSTEM MCHC 35.4 31.0 - 37.0 g/dL INTERFACE SYSTEM RDW 15.8(H) 11.0 - 14.5 % INTERFACE SYSTEM PLATELETS 216 140 - 440 K/ul INTERFACE SYSTEM MPV 9.6 8.9 - 12.8 Fl INTERFACE SYSTEM NRBC 6(H) <=1 INTERFACE SYSTEM Comment:WBC CORRECTED FOR NR BC 2005 6:00 PM HOSIERY LOOPER Reta Mcgowan MD HEMATOLOGY O RDERABLES Final Result INTERFACE SYSTEM Refer to clinic/hospital department * POC GLUCOSE (2005 5:39 PM HOSIERY LOOPER) GLUCOSE POC 74 50 - 80 mg/dL INTERFACE SYSTEM 2005 5:39 PM HOSIERY LOOPER us Reta Mcgowan MD POINT OF CAR E TESTING Final Result INTERFACE SYSTEM Refer to clinic/hospital department * POC GLUCOSE (2005 4:49 PM HOSIERY LOOPER) GLUCOSE POC 58 50 - 80 mg/dL INTERFACE SYSTEM 2005 4:49 PM HOSIERY LOOPER us Reta Mcgowan MD POINT OF CAR E TESTING Final Result Performing Organization Address City/State/[facility] Co de Phone Number INTERFACE SYSTEM Refer to clinic/hospital department documented in this encounter Visit Diagnoses Diagnosis Single liveborn, born in hospital, delivered by delivery- Primary documented in this encounter Care Teams Logistics Planning Engineer Relationship Specialty Start Date End Date Al Camarena MD [address] [place] [address] Dr [address] [facility] [place] [address] PCP - General 05/05/07 documented as of this encounter
--- OUTSIDE RECORDS SUMMARY | 2025-01-14 08:25 | XMS_ITS | Encounter Summary ---
Author Organization [facility] Address [address] [place] [address] Care Team Providers Care Civil Rights Representative Name Role Phone Al Camarena MD Primary Care Provider +1- [phone] Encounter Details Date Type Department Care Team (Late st Contact Info) Description 2005 Outpatient Historical [facility] Family Medicine Speculator-[address] [place] [address] Dr. Kapoor [address] [place] [phone] Al Camarena MD [address] [place] [address] Dr Kapoor [address] [place] [phone] Unspecified Otalgia (Primary Dx) Social History Tobacco Use Types Packs/Day Years Used Date Smoking Tobacco: Never Assessed Comments Unknown Sex and Gender Information Value Date Recorded Sex Assigned at Not on file Legal Sex Female 4:07 AM PATTERNMAKER PRESSURE CAST Gender Identity Not on file Sexual Orientation Not on file documented as of this encounter Plan of Treatment Not on file documented as of this encounter Visit Diagnoses Diagnosis Otalgia, unspecified- Primary documented in this encounter Care Teams Civil Rights Representative Relationship Specialty Start Date End Date Al Camarena MD [address] [place] [address] Dr Kapoor [address] [place] [phone] PCP - General 05/05/07 documented as of this encounter
--- OUTSIDE RECORDS SUMMARY | 2025-01-14 08:25 | XMS_ITS | Encounter Summary ---
Author Organization [facility] Address [address] [place] [address] Care Team Providers Care Assembler Deck And Hull Name Role Phone Al Camarena MD Primary Care Provider +1- [phone] Reason for Visit * Reason Onset Date Comments Medication Question 06/12/2024 Encounter Details Date Type Department Care Team (Late st Contact Info) Description 06/12/2024 Telephone [facility] Neurology - [place] [address] [facility] [address] [place] [address] Christiane Spencer MD [address] [facility] [address] [place] [address] Medication Question Social History Tobacco Use Types Packs/Day Years Used Date Smoking Tobacco: Never Passive Smoke Exposure: Never Smokeless Tobacco: Never Alcohol Use Standard Drinks/Week Comments Not Currently 0 (1 standard drink = 0.6 oz pur e alcohol) Feeling Safe Answer Date Recorded Are you in a relationship wi th someone who hurts you emotionally and/or physically? No 03/04/2024 Comments No Sex and Gender Information Value Date Recorded Sex Assigned at Not on file Legal Sex Female 3:30 AM MALT LIQUORS SALES SUPERVISOR Gender Identity Not on file Sexual Orientation Not on file documented as of this encounter Miscellaneous Notes * Telephone Encounter - Matt Goetz - 06/12/2024 7:53 AM MALT LIQUORS SALES SUPERVISOR Patient's mother called to state that Ileana missed a dose of her lamotrigine, they are going to give her the missed dose but it will be several hours late. They want to know is it safe to basically give her two doses at once to make up for the missed dose. If not, how much time does there need to be between doses. Routing to provider for review. LIQUORS SALES SUPERVISOR documented in this encounter Plan of Treatment Upcoming Encounters Date Type Department Care Team (Late st Contact Info) Description 10/26/2025 12:30 PM CDT Office Visit [facility] Neurology - [place] [address] [phone] Christiane Spencer MD [address] [facility] [address] [place] [address] documented as of this encounter Visit Diagnoses Not on filedocumented in this encounter Additional Health Concerns Assessment Noted Time PHQ-9 Depression Total Score: 5 03/26/20 24 2:56 PM MALT LIQUORS SALES SUPERVISOR documented as of this encounter Care Teams Assembler Deck And Hull Relationship Specialty Start Date End Date Al Camarena MD [address] [place] [address] [address] [place] [phone] PCP - General 07/23/20 documented as of this encounter
--- OUTSIDE RECORDS SUMMARY | 2025-01-14 08:25 | XMS_ITS | Encounter Summary ---
Author Organization [facility] Address [address] [place] [address] Care Team Providers Care Distribution Associate Name Role Phone Al Camarena MD Primary Care Provider +1- [phone] Encounter Details Date Type Department Care Team (Latest Contact Info) Description 2005 Outpatient Historical [facility] Family Medicine [address] Kapoor [address] [place] [phone] Al Camarena MD [address] [place] [phone] [facility] (Primary Dx); Need for Prophylactic Vaccination with Unspecified Combined Vaccine; Vaccine for poliomyelitis; Vaccin Strep Pneumoniae Social History Tobacco Use Types Packs/Day Years Used Date Smoking Tobacco: Never Assessed Comments Unknown Sex and Gender Information Value Date Recorded Sex Assigned at Not on file Legal Sex Female 4:07 AM CHIEF HOSPITAL ADMINISTRATOR Gender Identity Not on file Sexual Orientation Not on file documented as of this encounter Plan of Treatment Not on file documented as of this encounter Visit Diagnoses Diagnosis [facility]- Primary Health supervision of [place] Need for prophylactic vaccination with unspecified combined vaccine Vaccine for poliomyelitis Need for prophylactic vaccination and inoculation against poliomyelitis Need for prophylactic vaccination against Streptococcus pneumoniae (pneumococcus) Need for prophylactic vaccination against streptococcus pneumoniae (pneumococcus) documented in this encounter Care Teams Distribution Associate Relationship Specialty Start Date End Date Al Camarena MD [address] [place] [address] [address] [place] [phone] PCP - General 05/05/07 documented as of this encounter
--- OUTSIDE RECORDS SUMMARY | 2025-01-14 08:25 | XMS_ITS | Encounter Summary ---
Author Organization [facility] Address [address] [place] [address] Care Team Providers Care Briquetting Machine Operator Name Role Phone Al Camarena MD Primary Care Provider +1- [phone] Encounter Details Date Type Department Care Team (Late st Contact Info) Description 05/27/2007 Outpatient Historical [facility] Medicine [address] Kapoor [address] [place] [phone] Camelia Doss PAAmarjit NO ADDRESS ON FILE Social History Tobacco Use Types Packs/Day Years Used Date Smoking Tobacco: Never Assessed Comments Unknown Sex and Gender Information Value Date Recorded Sex Assigned at Not on file Legal Sex Female 4:07 AM LEAD FURNACE OPERATOR Gender Identity Not on file Sexual Orientation Not on file documented as of this encounter Plan of Treatment Not on file documented as of this encounter Visit Diagnoses Not on filedocumented in this encounter Care Teams Briquetting Machine Operator Relationship Specialty Start Date End Date Al Camarena MD [address] [place] [address] Dr Kapoor [address] [place] [phone] PCP - General 05/05/07 documented as of this encounter
--- OUTSIDE RECORDS SUMMARY | 2025-01-14 08:25 | XMS_ITS | Encounter Summary ---
Author Organization [facility] Address [address] [place] [address] Care Team Providers Care Furnace Keeper Name Role Phone Al Camarena MD Primary Care Provider +1- [phone] Encounter Details Date Type Department Care Team (Latest Contact Info) Description 2005 Outpatient Historical [facility] Family Medicine [place]-[address] [place] [address] Dr. Kapoor [address] [place] [address] Johnie Walker MD [address] [phone] ACUTE BRONCHITIS (Primary Dx) Social History Tobacco Use Types Packs/Day Years Used Date Smoking Tobacco: Never Assessed Comments Unknown Sex and Gender Information Value Date Recorded Sex Assigned at Not on file Legal Sex Female 4:07 AM WINERY WORKER Gender Identity Not on file Sexual Orientation Not on file documented as of this encounter Plan of Treatment Not on file documented as of this encounter Visit Diagnoses Diagnosis Acute bronchitis- Primary documented in this encounter Care Teams Furnace Keeper Relationship Specialty Start Date End Date Al Camarena MD [address] [place] [address] Dr Kapoor [address] [place] [address] PCP - General 05/05/07 documented as of this encounter
--- OUTSIDE RECORDS SUMMARY | 2025-01-14 08:25 | XMS_ITS | Encounter Summary ---
Author Organization [facility] Address [address] [place] [address] Care Team Providers Care Liquor Bridge Operator Name Role Phone Al Camarena MD Primary Care Provider +1- [phone] Encounter Details Date Type Department Care Team (Late st Contact Info) Description 01/16/2006 Outpatient Historical [facility] Medicine [place] [place] [address] Dr. Kapoor [address] [place] [phone] Al Camarena MD [address] [place] [phone] Acute Upper Respiratory Infections of Unspecified Site (Primary Dx); Viral Infection NEC Social History Tobacco Use Types Packs/Day Years Used Date Smoking Tobacco: Never Assessed Comments Unknown Sex and Gender Information Value Date Recorded Sex Assigned at Not on file Legal Sex Female 4:07 AM MANAGER ACTUARIAL Gender Identity Not on file Sexual Orientation Not on file documented as of this encounter Plan of Treatment Not on file documented as of this encounter Visit Diagnoses Diagnosis Acute upper respiratory infections of unspecified site- Primary Other specified viral infection, in conditions classified elsewhere and of unspecified site documented in this encounter Care Teams Liquor Bridge Operator Relationship Specialty Start Date End Date Al Camarena MD [address] [place] [address] Dr [address] [place] [address] PCP - General 05/05/07 documented as of this encounter
--- OUTSIDE RECORDS SUMMARY | 2025-01-14 08:25 | XMS_ITS | Encounter Summary ---
Author Organization [facility] Address [address] [place] [address] Care Team Providers Care Guillotine Trimmer Name Role Phone Al Camarena MD Primary Care Provider +1- [phone] Encounter Details Date Type Department Care Team (Late st Contact Info) Description 11/19/2024 Results Follow-Up [facility]rology - [place] [address] [facility] [address] [place] [address] Christiane Spencer MD [address] [place] [address] [place] [address] CLOBAZAM LEVEL Social History Tobacco Use Types Packs/Day Years [...] on file Legal Sex Female 3:30 AM FOX FARMER Gender Identity Not on file Sexual Orientation Not on file documented as of this encounter Miscellaneous Notes * Result Encounter Note - Christiane Spencer MD - 11/19/2024 11:05 AM CDT Stable antiseizure medication levels. Contact patient regarding result. documented in this encounter Plan of Treatment Upcoming Encounters Date Type Department Care Team (Late st Contact Info) Description 10/26/2025 12:30 PM CDT Office Visit [facility] Neurology - [place] [address] [place] [address] Christiane Spencer MD [address] [place] [address] [place] [address] documented as of this encounter Visit Diagnoses Not on filedocumented in this encounter Additional Health Concerns Assessment Noted Time PHQ-9 Depression Total Score: 4 07/08/19 25 8:49 AM FOX FARMER documented as of this encounter Care Teams Guillotine Trimmer Relationship Specialty Start Date End Date Al Camarena MD [address] [place] [address] Dr Kapoor [address] [place] [address] PCP - General 07/23/20 documented as of this encounter
--- OUTSIDE RECORDS SUMMARY | 2025-01-14 08:25 | XMS_ITS | Clinical Summary ---
Author Organization [facility] Address [address] 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 1 Kit 1 Active midazolam, PF, (VERSED) 5 mg/mL SolutionIndicati ons:For seizures lasting greater than 5 minutes Give 1ml in each nostril for total dose of 2mL FOR SEIZURE GREATER THAN 5 MINUTESWith nasal atomizer for seizure > 5 minutes. 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 60 Tablet 8 1 Active pyridoxine (VITAMIN B6) 100 mg Tablet Take 100 mg by mouth daily. Active rizatriptan (Maxalt-ARMHOLE RAISER LOCKSTITCH) 10 mg Tablet, Rapid DissolveIndicati ons:Migraine without status migrainosus, not intractable, unspecified migraine type Place 1 Tablet (10 mg) inside cheek every 2 hours as needed for Migraine. May repeat in 2 hr; max 3 doses in 24 hr; max 2 days per week 15 Tablet 2 1 Active cetirizine (ZyrTEC) 10 mg tabletIndication s:Seasonal allergic rhinitis due to pollen Take 1 Tablet (10 mg) by mouth 2 times daily. 60 Tablet 1 Active fluticasone propionate (FLONASE) 50 mcg/spray Rhodelia, Suspension nasal inhalerIndicatio ns:Seasonal allergic rhinitis due to pollen Administer 2 Sprays in each nostril daily. 16 Gram 1 Active Active Problems Problem Noted Date Diagnosed Date Myoclonic jerking 08/29/2020 Acne vulgaris 06/05/2017 Resolved Problems Problem Noted Date Diagnosed Date Resolved Date Appendicitis, unqualified 12/25/2012 Immunizations Immunization Administration Dates Next Due (ADACEL/BOOSTRIX)(10 YR UP) TDAP VACCINE, 0.5ML, IM 06/05/2017 (GARDASIL 9)(9-45 YRS) HUMAN PAPILLOMAVIRUS VACCINE, TYPES 6, 11, 16, 18, 31, 33, 45, 52, 58, NONAVALENT (9VHPV), 2 OR 3 DOSE, IM 12/11/2017,06/05/2017 (INFANRIX)(6 WKS-6 YRS) DIPT HERIA, TETANUS TOXOIDS, AND ACCELLULAR PERTUSSIS VACCINE (DTAP), 0.5 ML IM 05/16/2010 (M-M-R II/PRIORIX)(12 MO UP) MEASLES, MUMPS AND RUBELLA VIRUS VACCINE, 0.5 ML IM/SUBCUT 05/01/2006 (VARIVAX)(12 MOS UP)VARICELL A VIRUS VACCINE (PF) 0.5 ML, SUB CUT 05/01/2006 DTaP Vaccine < 7 YO IM VFC 05/16/2010 Dt Dtp Dtap Vaccine 05/08/2006, 6,2005,08/29,2005 HIB, Unspecified Formulation 05/01/2006, 2005,2005,06/29 Hepatitis B Vaccine 2005,2005,2004 IPV/OPV 05/01/2006,2005,2005 Influenza Seasonal Unspecifi ed Formulation IM 05/01/2006 MMR Vaccine SQ VFC 05/16/2010 Meningococcal A Conjugate Vaccine IM 06/05/2017 Pneumococcal 7-valent conjug ate vaccine IM 05/01/2006,2005,2005,06/29 Poliovirus IPV VFC 05/16/2010 Tdap Vaccine > 7 Yo IM VFC 05/16/2010 Varicella Vaccine Live Sq VFC 09/21/2010 Family History Medical History Relation Name Comments Healthy Brother Healthy Father Healthy Maternal Grandfather Hypertension Maternal Grandmother Healthy Mother Seizures Other 1 pat. great-aunt Rey Migraines Other 2 Seizures Other 3 pat. 2nd cousin REY Seizures Other 4 pat. 3rd cousin REY Healthy Paternal Grandfather Healthy Paternal Grandmother Learning Disabilities Neg Hx Stroke Neg Hx Relation Name Status Comments Brother Alive Father Alive Maternal Grandfather Alive Maternal Grandmother Alive Mother Alive Other 1 pat. great-aunt Other 2 Other 3 pat. 2nd cousin Other 4 pat. 3rd cousin Paternal Grandfather Alive Paternal Grandmother Alive Social History Tobacco Use Types Packs/Day Years Used Date Smoking Tobacco: Never Smokeless Tobacco: Never Tobacco Cessation:Counseling Given: Yes Alcohol Use Standard Drinks/Week Comments Not Currently 0 (1 standard drink = 0.6 oz pur e alcohol) Comments No Sex and Gender Information Value Date Recorded Sex Assigned at Not on file Legal Sex Female 4:07 AM REFERRAL NURSE Gender Identity Not on file Sexual Orientation Not on file Last Filed Vital Signs Vital Sign Reading Time Taken Comments Blood Pressure 116/64 11/04/2020 3:51 PM CDT Pulse 73 11/04/2020 3:51 PM CDT Temperature 36.9 C (98.5 F) 11/04/2020 3:51 PM CDT Respiratory Rate 15 08/29/2020 2:00 AM CDT Oxygen Saturation 98% 11/04/2020 3:51 PM CDT Inhaled Oxygen Concentration - - Weight 73.9 kg (163 lb) 11/04/2020 3:51 PM CDT Height 162.4 cm (5' 3.94 ) 11/04/2020 3:51 PM CD T Body Mass Index 28.03 11/04/2020 3:51 PM CDT Body Mass Index Percentile 94.39% 11/04/2020 3:5 1 PM CDT Growth Chart: [facility] (Girls, 2- 20 Years) Plan of Treatment Health Maintenance Due Date Last Done Comments CHLAMYDIA SCREENING (ANNUAL) 11-24 YEARS 2016 Preventative Visit- Commercial 05/20/2024 0 12/06/2022, 07/18/2021, 06/05/2017, Additional history exists INFLUENZA VACCINE (#1) 2024 9, 07/28/2018, 05/01/2006 DTAP/TDAP/TD VACCINES (7 - T d or Tdap) 06/05/2027 06/05/2017, 05/16/2010, 05/16/2010, Additional history exists HEPATITIS B VACCINES Completed 2005, 2005, 2005 HPV VACCINES Completed 12/11/2017, 06/05/2017 Insurance RX INFOCROSSING Medicaid [facility] MEDICAID Advance Directives For more information, please contact: [phone] * Full Code (Latest Code Status on File) Date Activated Date Inactivated Comments 12/25/2012 8:16 AM 12/26/2012 12:19 PM * Full Code Date Activated Date Inactivated Comments 12/25/2012 7:06 AM 12/25/2012 8:16 AM * Full Code Date Activated Date Inactivated Comments 12/25/2012 12:51 AM 12/25/2012 7:06 AM Care Teams Production Corrugator Relationship Specialty Start Date End Date Al Camarena MD [address] [place] [address] [address] [place] [address] PCP - General 05/05/07
--- OUTSIDE RECORDS SUMMARY | 2025-01-14 08:25 | XMS_ITS | Encounter Summary ---
Author Organization [facility] Address [address] [place] [address] Care Team Providers Care Manager Orange Name Role Phone Al Camarena MD Primary Care Provider +1- [phone] Encounter Details Date Type Department Care Team (Late st Contact Info) Description 07/25/2006 Outpatient Historical [facility] Medicine [address] Kapoor [address] [place] [phone] Al Camarena MD [address] [place] [phone] Intestinal Infection due to Other Organism, NEC (Primary Dx); Acute Upper Respiratory Infections of Unspecified Site; Viral Infection NEC Social History Tobacco Use Types Packs/Day Years Used Date Smoking Tobacco: Never Assessed Comments Unknown Sex and Gender Information Value Date Recorded Sex Assigned at Not on file Legal Sex Female 4:07 AM AIR BRUSH DECORATOR Gender Identity Not on file Sexual Orientation Not on file documented as of this encounter Plan of Treatment Not on file documented as of this encounter Visit Diagnoses Diagnosis Intestinal infection due to other organism, not elsewhere classified- Primary Acute upper respiratory infections of unspecified site Other specified viral infection, in conditions classified elsewhere and of unspecified site documented in this encounter Care Teams Manager Orange Relationship Specialty Start Date End Date Al Camarena MD [address] [place] [address] [address] [place] [address] PCP - General 05/05/07 documented as of this encounter
--- OUTSIDE RECORDS SUMMARY | 2025-01-14 08:25 | XMS_ITS | Encounter Summary ---
Author Organization [facility] Address [address] [place] [address] Care Team Providers Care Shredder Operator Name Role Phone Al Camarena MD Primary Care Provider +1- [phone] Encounter Details Date Type Department Care Team (Latest Contact Info) Description 05/01/2006 Outpatient Historical [facility] Family Medicine [address] Kapoor [address] [place] [phone] Al Camarena MD [address] [place] [phone] [facility] (Primary Dx); Need for Prophylactic Vaccination with Unspecified Combined Vaccine; Vaccine for poliomyelitis; Vaccine for influenza; Vaccin Strep Pneumoniae Social History Tobacco Use Types Packs/Day Years Used Date Smoking Tobacco: Never Assessed Comments Unknown Sex and Gender Information Value Date Recorded Sex Assigned at Not on file Legal Sex Female 4:07 AM MARKETING PROFESSOR Gender Identity Not on file Sexual Orientation Not on file documented as of this encounter Plan of Treatment Not on file documented as of this encounter Visit Diagnoses Diagnosis [facility] health care- Primary Health supervision of foundling Need for prophylactic vaccination with unspecified combined vaccine Vaccine for poliomyelitis Need for prophylactic vaccination and inoculation against poliomyelitis Vaccine for influenza Need for prophylactic vaccination and inoculation against influenza Need for prophylactic vaccination against Streptococcus pneumoniae (pneumococcus) Need for prophylactic vaccination against streptococcus pneumoniae (pneumococcus) documented in this encounter Care Teams Shredder Operator Relationship Specialty Start Date End Date Al Camarena MD [address] [place] [address] [address] [place] [id number] PCP - General 05/05/07 documented as of this encounter
[2025-01-14 08:26] VITALS: BP 123/78; PULSE 115; RESP 18; TEMP 37.3; O2SAT 98; BMI 34.3
--- OUTSIDE RECORDS SUMMARY | 2025-01-14 08:26 | XMS_ITS | Encounter Summary ---
Author Organization [facility] Address [address] [place] [address] Care Team Providers Care Motorized Squad Sergeant Name Role Phone Al Camarena MD Primary Care Provider +1- [phone] Encounter Details Date Type Department Care Team (Late st Contact Info) Description 2005 Outpatient Historical [facility] Medicine [place]-[address] [place] [address] Dr. Kapoor [address] [place] [phone] Al Camarena MD [address] [place] [phone] NEC [id number] (Primary Dx) Social History Tobacco Use Types Packs/Day Years Used Date Smoking Tobacco: Never Assessed Comments Unknown Sex and Gender Information Value Date Recorded Sex Assigned at Not on file Legal Sex Female 4:07 AM PARTNER MARKETING INTERN Gender Identity Not on file Sexual Orientation Not on file documented as of this encounter Plan of Treatment Not on file documented as of this encounter Visit Diagnoses Diagnosis Other infants, 1,750-1,999 grams(765.17)- Primary Other infants, 1,750-1,999 grams documented in this encounter Care Teams Motorized Squad Sergeant Relationship Specialty Start Date End Date Al Camarena MD [address] [place] [address] [address] [place] [address] PCP - General 05/05/07 documented as of this encounter
--- OUTSIDE RECORDS SUMMARY | 2025-01-14 08:26 | XMS_ITS | Encounter Summary ---
Author Organization [facility] Address [address] [place] [address] Care Team Providers Care Railroad Wheels And Axle Inspector Name Role Phone Al Camarena MD Primary Care Provider +1- [phone] Encounter Details Date Type Department Care Team (Late st Contact Info) Description 2005 Outpatient Historical [facility] Family Medicine [place]-[address] [place] [address] Dr. Kapoor [address] [place] [phone] Al Camarena MD [address] [place] [address] Dr Kapoor [address] [place] [phone] ACUTE URI NOS (Primary Dx) Social History Tobacco Use Types Packs/Day Years Used Date Smoking Tobacco: Never Assessed Comments Unknown Sex and Gender Information Value Date Recorded Sex Assigned at Not on file Legal Sex Female 4:07 AM DIRECTOR OF OPERATIONS Gender Identity Not on file Sexual Orientation Not on file documented as of this encounter Plan of Treatment Not on file documented as of this encounter Visit Diagnoses Diagnosis Acute upper respiratory infections of unspecified site- Primary documented in this encounter Care Teams Railroad Wheels And Axle Inspector Relationship Specialty Start Date End Date Al Camarena MD [address] [place] [address] Dr Kapoor [address] [place] [phone] PCP - General 05/05/07 documented as of this encounter
--- OUTSIDE RECORDS SUMMARY | 2025-01-14 08:26 | XMS_ITS | Encounter Summary ---
Author Organization [facility] Address [address] [place] [address] Care Team Providers Care Cinema Operator Name Role Phone Al Camarena MD Primary Care Provider +1- [phone] Encounter Details Date Type Department Care Team (Late st Contact Info) Description 2005 Outpatient Historical [facility] Medicine [place]-[address] [place] [address] Dr. Kapoor [address] [place] [phone] Al Camarena MD [address] [place] [phone] NEC [id number] (Primary Dx) Social History Tobacco Use Types Packs/Day Years Used Date Smoking Tobacco: Never Assessed Comments Unknown Sex and Gender Information Value Date Recorded Sex Assigned at Not on file Legal Sex Female 4:07 AM HOSPITAL DIRECTOR Gender Identity Not on file Sexual Orientation Not on file documented as of this encounter Plan of Treatment Not on file documented as of this encounter Visit Diagnoses Diagnosis Other infants, 1,750-1,999 grams(765.17)- Primary Other infants, 1,750-1,999 grams documented in this encounter Care Teams Cinema Operator Relationship Specialty Start Date End Date Al Camarena MD [address] [place] [address] Dr [address] [place] [address] PCP - General 05/05/07 documented as of this encounter
--- OUTSIDE RECORDS SUMMARY | 2025-01-14 08:26 | XMS_ITS | Encounter Summary ---
Author Organization [facility] Address [address] [place] [address] Care Team Providers Care Tanbark Peeler Name Role Phone Al Camarena MD Primary Care Provider +1- [phone] Encounter Details Date Type Department Care Team (Late st Contact Info) Description 2005 Outpatient Historical [facility] Family Medicine [place]-[address] [place] [address] Dr. 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
--- OUTSIDE RECORDS SUMMARY | 2025-01-14 08:26 | XMS_ITS | Clinical Summary ---
Author Organization [facility] Address [address] [place] [address] Care Team Providers Care Pallet Sorter Name Role Phone Al Camarena MD Primary Care Provider +1- [phone] Allergies No known active allergies Medications rizatriptan (MAXALT PATIENT ASSISTANT) 10 mg Tablet, Rapid DissolveIndicati ons:Migraine without status migrainosus, not intractable, unspecified migraine type DISSOLVE 1 TABLET(10 MG) INSIDE CHEEK EVERY 2 HOURS NEEDED FOR MIGRAINE. MAY REPEAT IN 2 HOUR. MAX 3 DOSES IN 24 HOUR. MAX 2 DAYS EVERY WEEK 15 Tablet 2 3 Active clindamycin phosphate (CLEOCIN) 1 % Solution Apply to affected area 2 times daily. 60 mL 5 4 Active triamcinolone acetonide (KENALOG) 0.1 % Cream Apply to affected area 2 times daily. 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 60 Tablet 5 5 Active escitalopram oxalate (LEXAPRO) 20 mg tabletIndication s:Severe episode of recurrent major depressive disorder, without psychotic features (CMS/HCC) Take 1 tablet by mouth once daily 30 Tablet 2 5 Active fluoride, sodium, (ETHEDENT) 1.1 % Cream daily. 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 05/02/2021 Migraine without status migrainosus, not intract able 05/02/2021 Myoclonic jerking 08/29/2020 Acne vulgaris 06/05/2017 Resolved Problems Problem Noted Date Diagnosed Date Resolved Date Appendicitis, unqualified 12/25/2012 Encounters Date Type Department Care Team Description 01/06/2025 External Device Data [facility] ABSTRACTION Provider, Abstract 01/05/2025 External Device Data [facility]STRACTION Provider, Abstract 12/23/[address] [place] [address] Leighann Weiss PA Appointment Notification 12/02/2024 External Device Data [facility]STRACTION Provider, Abstract 12/02/2024 External Device Data [facility]STRACTION Provider, Abstract 11/19/2024 Results Follow-Up [facility] Neurology - [place] [address] [facility] [address] [place] [address] Christiane Spencer MD CLOBAZAM LEVEL 11/07/[address] [place] [address] Leighann Weiss PA Severe episode of recurrent major depressive disorder, without psychotic features (CMS/HCC) 11/03/2024 External Device Data [facility] ABSTRACTION Provider, Abstract 10/26/2024 1:10 PM CDT Office Visit [facility] Neurology [address] [place] [phone] Christiane Spencer MD Generalized epilepsy (CMS/HCC) (Primary Dx); Medication management; Medication refill 10/24/2024 Refill [facility] Neurology [place] [address] [place] [phone] Christiane Spencer MD 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); Generalized epilepsy (CMS/HCC); Generalized seizures (CMS/HCC) from Last 3 Months Immunizations Immunization Administration Dates Next Due (ADACEL/BOOSTRIX)(10 YR UP) TDAP VACCINE, 0.5ML, IM 06/05/2017,05/16/2010 (GARDASIL 9)(9-45 YRS) HUMAN PAPILLOMAVIRUS VACCINE, TYPES 6, 11, 16, 18, 31, 33, 45, 52, 58, NONAVALENT (9VHPV), 2 OR 3 DOSE, IM 12/11/2017,06/05/2017 (INFANRIX)(6 WKS-6 YRS) DIPT HERIA, TETANUS TOXOIDS, AND ACCELLULAR PERTUSSIS VACCINE (DTAP), 0.5 ML IM 05/16/2010,05/08/2006,05/01/2006,11/05,2005,2005 (IPOL)(6 WKS AND UP) POLIOVI AILEEN VACCINE, INACTIVATED (IPV), 3 DOSE, SUBCUT OR IM 05/16/2010,05/01/2006,2005,06/29 (M-M-R II/PRIORIX)(12 MO UP) MEASLES, MUMPS AND RUBELLA VIRUS VACCINE, 0.5 ML IM/SUBCUT 05/16/2010,05/01/2006 (MENQUADFI)(2 YRS UP) MENING OCOCCAL POLYSACCHARIDE VACCINE A,C,Y,W-135, TT CONJUGATE (PF) 10 MCG/0.5 ML IM SOLUTION 12/06/2022 (RECOMBIVAX HB/ENGERIX-B)(0- 19 YRS) HEPATITIS B VACCINE 5 MCG/0.5 ML OR 10 MCG/0.5 ML PED OR ADOL 3 DOSE (PF), IM 2005 (VARIVAX)(12 MOS UP)VARICELL A VIRUS VACCINE (PF) 0.5 ML, SUB CUT 09/21/2010,05/01/2006 DTaP Vaccine < 7 YO IM VFC 05/16/2010 Dt Dtp Dtap Vaccine 05/08/2006, 6,2005,08/29,2005 HIB, Unspecified Formulation 05/01/2006, 2005,2005,06/29 Hepatitis B Vaccine 2005,2005,2004 Hepatitis B and Haemophilus Influenzae Type B Vaccine (Hib-HepB)IM 2005,2005 IPV/OPV 05/01/2006,2005,2005 Influenza Seasonal Unspecifi ed Formulation IM 05/01/2006 Influenza Vaccine Tri Split 4+ Im 05/01/2006 MMR Vaccine SQ VFC 05/16/2010 Meningococcal A Conjugate Vaccine IM 06/05/2017 Meningococcal ACWY Vaccine, Unspecified Formulation 06/05/2017 Pneumococcal 7-valent conjug ate vaccine IM 05/01/2006,2005,2005,06/29 Poliovirus IPV VFC 05/16/2010 Tdap Vaccine > 7 Yo IM VFC 05/16/2010 Varicella Vaccine Live Sq VFC 09/21/2010 Family History Medical History Relation Name Comments Healthy Brother Healthy Father Healthy Maternal Grandfather Hypertension Maternal Grandmother Healthy Mother Migraines Other 1 Seizures Other 2 pat. 2nd cousin MARION Seizures Other 3 pat. 3rd cousin MARION Seizures Other 4 pat. great-aunt Marion Healthy Paternal Grandfather Healthy Paternal Grandmother Learning Disabilities Neg Hx Stroke Neg Hx Relation Name Status Comments Brother Alive Father Alive Maternal Grandfather Alive Maternal Grandmother Alive Mother Alive Other 1 Other 2 pat. 2nd cousin Other 3 pat. 3rd cousin Other 4 pat. great-aunt Paternal Grandfather Alive Paternal Grandmother Alive Social History Tobacco Use Types Packs/Day Years Used Date Smoking Tobacco: Never Passive Smoke Exposure: Never Smokeless Tobacco: Never Tobacco Cessation:Counseling Given: Not Answered Alcohol Use Standard Drinks/Week Comments Not Currently 0 (1 standard drink = 0.6 oz pur e alcohol) Feeling Safe Answer Date Recorded Are you in a relationship wi th someone who hurts you emotionally and/or physically? 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 Gender Identity Not on file Sexual Orientation Not on file Last Filed Vital Signs Vital Sign Reading Time Taken Comments Blood Pressure 114/70 10/26/2024 1:29 PM CDT Pulse 78 10/26/2024 1:29 PM CDT Temperature 36.6 C (97.8 F) 05/01/2024 2:49 PM PROFESSOR OF FOREST PLANNING Respiratory Rate 16 03/04/2024 2:30 PM CDT Oxygen Saturation 97% 10/26/2024 1:29 PM CDT Inhaled Oxygen Concentration - - Weight 91.5 kg (201 lb 12.8 oz) 10/26/2024 1:29 PM CDT Height 162.6 cm (5' 4 ) 10/26/2024 1:29 PM CDT Head Circumference 18 cm 08/24/2022 2:32 PM CDT Body Mass Index 34.64 10/26/2024 1:29 PM CDT Plan of Treatment Upcoming Encounters Date Type Department Care Team (Late st Contact Info) Description 10/26/2025 12:30 PM CDT Office Visit [facility] Neurology - [place] [address] [place] [address] Christiane Spencer MD [address] [place] [address] Health Maintenance Due Date Last Done Comments CHLAMYDIA SCREENING (ANNUAL) 11-24 YEARS 2016 Preventative Visit-Managed Medicaid 07/16/2024 07/15/2023, 12/06/2022, 07/18/2021, Additional history exists INFLUENZA VACCINE (#1) 2024 , 07/28/2018, 07/28/2018, Additional history exists DTAP/TDAP/TD VACCINES (7 - T d or Tdap) 06/05/2027 06/05/2017, 05/16/2010, 05/16/2010, Additional history exists HEPATITIS B VACCINES Completed 2005, 2005, 2005, Additional history exists HPV VACCINES Completed 12/11/2017, 06/05/2017 Procedures Procedure Name Priority Date/Time Associated Diagnosis Comments CLOBAZAM LEVEL Routine 10/26/2024 2:10 PM CDT Medication management from Last 3 Months Results * CLOBAZAM LEVEL (10/26/2024 2:10 PM CDT) CLOBAZAM 410 ng/mL [facility] Comment: Reporting Limit: 20 ng/mL Synonym(s): Urbanyl(R); Sympazan; Frisium(R); Onfi(R) Clobazam is a benzodiazepine drug used as an anxiolytic and antiseizure medication. It is also employed as an adjunctive therapy for the treatment of seizures in patients with Fox[place]-Gastaut syndrome. The average (range) peak plasma concentrations reported following a single 20 mg dose was 465 (222-709) ng/mL. Reported average steady-state plasma concentrations of 1076 ng/mL and 2884 ng/mL were reported following 40 mg/day and 160 mg/day doses, respectively. The mean concentrations of clobazam did not differ between [id number] extensive and poor metabolizers. The recommended therapeutic range for clobazam is 30-300 ng/mL. Analysis by High Performance Liquid Chromatography/ Tandem Mass Spectrometry (LC-MS/MS) DESMETHYLCLOBAZAM 610 ng/mL [facility] Comment: Reporting Limit: 30 ng/mL Synonym(s): Clobazam Metabolite N-desmethylclobazam is the primary pharmacologically active metabolite of Clobazam, a benzodiazepine drug used as an anxiolytic and antiseizure medication. The average (range) peak plasma concentrations reported following a single 20 mg dose was 88 (61-146) ng/mL. Reported average steady-state serum/plasma concentrations of 2783 ng/mL and 95075 ng/mL were reported following 40 mg/day and 160 mg/day doses, respectively. Excluding poor metabolizers decreased the mean N-desmethylclobazam concentration. The N-desmethylclobazam/clobazam ratio has been reported to be 5 times higher in poor metabolizers than in extensive metabolizers. The recommended therapeutic range for N-desmethylclobazam is 300-3000 ng/mL. Poor metabolizers or patients on CY inducers and/or [id number] inhibitors have been reported to have elevated concentrations of N-desmethylclobazam and increased adverse reactions. Analysis by High Performance Liquid Chromatography/ Tandem Mass Spectrometry (LC-MS/MS) This test was developed and its performance characteristics determined by [facility]. It has not been cleared or approved by the [place] Food and Drug Administration. Digital data review may have taken place remotely by qualified [facility] staff utilizing a secure VPN connection for some or all of the reported results. This is in accordance with and follows CLIA regulations. Test Performed at: [facility] [address] [place] [address] Manny Falcon PH.D, F-ABFT Blood 10/26/2024 2:10 PM CDT 10/26/2024 2:11 PM CDT us Christiane Spencer MD CHEMISTRY ORDERABLES Final Resul t [facility] [phone] [facility] [address] [place] [phone] from Last 3 Months Insurance [facility] [place] [id number] * Guarantor: DENZELFRANCIRAJWINDER ARTHUR Account Type Relation to Patient Date of Phone Billing Address Personal/Family [id number] [facility] [place] [id number] RX [employer] Medicaid Care Teams Pallet Sorter Relationship Specialty Start Date End Date Al Camarena MD [address] [place] [address] [address] [place] [phone] PCP - General 07/23/20
--- OUTSIDE RECORDS SUMMARY | 2025-01-14 08:26 | XMS_ITS | Encounter Summary ---
Author Organization [facility] Address [address] [place] [address] Care Team Providers Care Pot Builder Name Role Phone Unavailable Primary Care Provider Unavailabl e Reason for Visit * Reason Comments Office Visit: Converted Data Conversion Encounter Details Date Type Department Care Team (Late Contact Info) Description 11/26/2023 Dental Interim Note [facility] [address] [place] [address] [facility] [place] Social History Tobacco Use Types Packs/Day Years Used Date Smoking Tobacco: Never Assessed Social Connections Answer Date Recorded Social Connections and Isolation 0 09/11/2023 Financial Resource Strain Answer Date R ecorded Financial Resource Strain 0 2023 Stress Answer Date Recorded Stress 0 09/11/2023 Physical Activity Answer Date Recorded Physical Activity 0 09/11/2023 Food Insecurity Answer Date Recorded Food 0 09/11/2023 Transportation Needs Answer Date Record ed Transportation 0 09/11/2023 Housing Stability Answer Date Recorded Housing 0 09/11/2023 Safety and Environment Answer Date Afshin rded Safety 0 09/11/2023 Utilities Answer Date Recorded Utilities 0 09/11/2023 Employment Answer Date Recorded Employment 0 09/11/2023 Comments Unknown Sex and Gender Information Value Date Recorded Sex Assigned at Not on file Legal Sex Female 7:18 PM PDT Gender Identity Female 11/08/2023 4:09 PM PDT Sexual Orientation Choose not to disclose 2023 4:09 PM PDT documented as of this encounter Plan of Treatment Upcoming Encounters Date Type Department Care Team (Late Contact Info) Description 03/15/2025 3:30 PM CDT Office Visit [facility] Dental [address] [place] [address] Allan Hopper [address] [place] [phone] documented as of this encounter Visit Diagnoses Not on filedocumented in this encounter
--- OUTSIDE RECORDS SUMMARY | 2025-01-14 08:26 | XMS_ITS | Clinical Summary ---
Author Organization [facility] Address [address] [place] [address] Care Team Providers Care Contamination Consultant Name Role Phone Unavailable Primary Care Provider Unavailabl e Source Comments PLEASE NOTE, if this patient is a minor, it may be UNLAWFUL to discuss sensitive information that is contained in these records (such as FAMILY PLANNING, MENTAL HEALTH or SUBSTANCE ABUSE) with the minor patient's parent or other person without the patient's specific authorization.[facility] Medications fluoride, sodium, (PREVIDENT 5000 PLUS) 1.1 % creaIndications: At high risk for dental caries Place in mouth once daily Place a pea-sized amount on toothbrush, brush teeth for two minutes, rinse and spit once daily. 51 g 5 09/10/2024 Active Active Problems Problem Noted Date Diagnosed Date Depression 03/06/2024 Dental caries 04/10/2017 Encounters Date Type Department Care Team Description 12/01/2024 8:30 AM CDT Office Visit [address] [address] Allan Hopper from Last 3 Months Social History Tobacco Use Types Packs/Day Years Used Date Smoking Tobacco: Never Smokeless Tobacco: Never Tobacco Cessation:Counseling Given: Not Answered Social Connections Answer Date Recorded Connectedness 0 02/03/2024 Financial Resource Strain Answer Date R ecorded Financial Resource Strain 0 2023 Stress Answer Date Recorded Stress 0 09/11/2023 Physical Activity Answer Date Recorded Physical Activity 0 09/11/2023 Food Insecurity Answer Date Recorded Food 0 02/13/2024 Transportation Needs Answer Date Record ed Transportation 0 09/11/2023 Housing Stability Answer Date Recorded Housing 0 09/11/2023 Safety and Environment Answer Date Afshin rded Safety 0 09/11/2023 Utilities Answer Date Recorded Utilities 0 09/11/2023 Employment Answer Date Recorded Stress 0 02/03/2024 Comments Unknown Sex and Gender Information Value Date Recorded Sex Assigned at Not on file Legal Sex Female 7:18 PM PDT Gender Identity Female 11/08/2023 4:09 PM PDT Sexual Orientation Choose not to disclose 2023 4:09 PM PDT Last Filed Vital Signs Vital Sign Reading Time Taken Comments Blood Pressure 127/76 12/01/2024 8:33 AM CDT Pulse - - Temperature - - Respiratory Rate - - Oxygen Saturation - - Inhaled Oxygen Concentration - - Weight - - Height - - Body Mass Index - - Plan of Treatment Upcoming Encounters Date Type Department Care Team (Late st Contact Info) Description 03/15/2025 3:30 PM CDT Office Visit [facility] [address] [place] [phone] Allan Hopper [address] [place] [address] Health Maintenance Due Date Last Done Comments Anxiety Screening 2005 Dental Perio Charting 2005 Depression Monitoring 2005 Hepatitis C Screening 2005 STI Counseling 2005 Chlamydia Screening 2018 Gonorrhea Screening 2018 HIV Screening 2020 Relationship Safety Screening/Counseling 2020 [id number] ( season) 2024 Alcohol and Drug Screen 05/20/2024 Imm-Influenza (#1) 2025 05/01/2006 Dental Examination 03/14/2025 09/10/2024, 03/06/2024 Dental Prophy 03/14/2025 09/10/2024, 03/06/2024 Dental BW 09/12/2025 09/10/2024, 03/06/2024 Tobacco Screening 12/01/2025 12/01/2024 Imm-DTaP/Tdap/Td (7 - Td or Tdap) 06/05/2027 06/05/2017, 05/16/2010, 05/16/2010, Additional history exists Hypertension Screening (#1) 12/01/2027 Dental FMX/Pano 03/08/2029 03/06/2024 Imm-Hepatitis B Completed 2005, 06/20, 2005, Additional history exists Imm-MMR Completed 05/16/2010, 05/01/2006 Imm-Varicella Completed 09/21/2010, 05/01/2006 Imm-HPV Completed 12/11/2017, 06/05/2017 Imm-Hepatitis A Aged Out No longer el igible based on patient's age to complete this topic Procedures Procedure Name Priority Date/Time Associated Diagnosis Comments 11 F RESIN-BASED COMPOSITE ONE SURFACE ANTERIOR Routine 12/01/2024 8:30 AM CDT Caries Encounter for dental examination 8 F RESIN-BASED COMPOSITE ONE SURFACE ANTERIOR Routine 12/01/2024 8:30 AM CDT Caries Encounter for dental examination BITEWINGS - FOUR RADIOGRAPHIC IMAGES Routine 09/10/2024 9:00 AM CDT Encounter for dental examination Caries PROPHYLAXIS - ADULT Routine 09/10/2024 9 :00 AM CDT Encounter for dental examination [facility] PERIODIC ORAL EVALUATION ESTABLISHED PATIENT Routine 09/10/2024 9:00 AM CDT Encounter for dental examination [facility]ies PANORAMIC RADIOGRAPHIC IMAGE Routine 03/06/2024 8:45 AM CDT Encounter for dental examination from Last 3 Months or Most Recently Relevant to Health Maintenance Insurance [facility] D[facility] MEDICAID
--- OUTSIDE RECORDS SUMMARY | 2025-01-14 08:26 | XMS_ITS | Encounter Summary ---
Author Organization [facility] Address [address] [place] [address] Care Team Providers Care Mail Processing Clerk Name Role Phone Al Camarena MD Primary Care Provider [phone] Encounter Details Date Type Department Care Team (Latest Contact Info) Description 2005 Outpatient Historical [facility] [address] Kapoor [address] [place] [phone] Al Camarena MD [address] [place] [phone] [facility] (Primary Dx); VACCINE DIS COMBINATIONS NOS; Vaccine for viral hepatitis; Vaccine for varicella; VACCINE FOR STREP PNEUMONIAE Social History Tobacco Use Types Packs/Day Years Used Date Smoking Tobacco: Never Assessed Comments Unknown Sex and Gender Information Value Date Recorded Sex Assigned at Not on file Legal Sex Female 4:07 AM [employer] Gender Identity Not on file Sexual Orientation Not on file documented as of this encounter Plan of Treatment Not on file documented as of this encounter Visit Diagnoses Diagnosis [facility] Primary Health supervision of [place] Need for prophylactic vaccination with unspecified combined vaccine Vaccine for viral hepatitis Need for prophylactic vaccination and inoculation against viral hepatitis Vaccine for varicella Need for prophylactic vaccination and inoculation against varicella Need for prophylactic vaccination against Streptococcus pneumoniae (pneumococcus) Need for prophylactic vaccination against streptococcus pneumoniae (pneumococcus) documented in this encounter Care Teams Mail Processing Clerk Relationship Specialty Start Date End Date Al Camarena MD [address] [place] [address] [address] [place] [id number] PCP - General 05/05/07 documented as of this encounter
--- NOTE | 2025-01-14 08:41 | W.ED.URI ---
HPI - URI/Sore Throat General: Chief Complaint: Upper Respiratory Infection Stated Complaint: throat pain and dizzy Time Seen by Provider: 01/14/25 08:11 History of Present Illness: 19-year-old female presents emergency room complaining of pharyngitis. Patient has painful swallowing. Nausea no vomiting or diarrhea Associated symptoms: Deny abdominal pain, chills, chest pain, diarrhea, ear or mastoid pain, fever(s), nasal congestion, nausea or vomiting Related Data Previous Rx's ?Medication ?Instructions ?Recorded amoxicillin 875 mg tablet 875 mg PO BID #20 tabs 01/14/25 Allergies Allergy/AdvReac Type Severity Reaction Status Date / Time No Known Allergies Allergy Verified 01/14/25 08:27 Review of Systems Const: Denies: fever(s), chills, body aches, change in appetite, fatigue or malaise ENMT: Denies: throat pain, ear or mastoid pain, nasal discharge or nasal congestion Card: Denies: chest pain, edema, dyspnea on exertion or orthopnea Resp: Denies: dyspnea, productive cough or non-productive cough GI: Denies: abdominal pain, nausea, vomiting, hematemesis, coffee ground emesis, diarrhea, constipation, bloating, hematochezia or melena : Denies: flank pain, difficulty voiding, dysuria, urinary frequency or urinary urgency Skin/Breast: Denies: rash or pruritus Physical Exam Const: GENERAL APPEARANCE: cooperative ORIENTATION/CONSCIOUSNESS: Yes awake, Yes oriented to person, Yes oriented to place and Yes oriented to time HENMT: COMMON NORMALS: normocephalic, atraumatic, hearing grossly normal bilaterally, external ears normal, EAC's normal, TM's normal bilaterally, Normal nasal mucous membranes and turbinates present, moist oral mucous membranes and oropharynx normal HEAD & SCALP: normocephalic and atraumatic NOSE: Normal nasal mucous membranes and turbinates present EXTERNAL EAR: Yes external ears normal EXTERNAL AUDITORY CANAL: EAC's normal TYMPANIC MEMBRANE: TM's normal bilaterally OTHER: Posterior pharyngeal red inflamed tonsils have exudate. Tender submandibular lymphadenopathy more prominent on the right than the left. No asymmetry of the posterior pharyngeal wall or tonsillar pillar suggestive of abscess development. Eye: COMMON NORMALS: Equal, round and reactive pupils present, EOMs intact bilaterally, conjunctivae normal and no scleral icterus CONJUNCTIVA: Yes conjunctivae normal PUPIL: Yes Equal, round and reactive pupils present Neck/C-Spine: COMMON NORMALS: full ROM, no lymphadenopathy, supple and no JVD Lymph: LYMPHATIC: no lymphadenopathy noted and no lymphedema noted Resp: COMMON NORMALS: normal respiratory effort, No retractions, No use of accessory muscles and clear to auscultation bilaterally AUSCULTATION: clear to auscultation bilaterally Cardio: COMMON NORMALS: no JVD, regular rate, regular rhythm and No murmurs present (Cardio) RATE: regular rate RHYTHM: regular rhythm GI: COMMON NORMALS: Soft to palpation and No hepatosplenomegaly present AUSCULTATION: Yes normoactive bowel sounds PALPATION: Yes Soft to palpation, No Tenderness to palpation present (GI), No Guarding due to palpation present (GI) and Yes No hepatosplenomegaly present Extremity: COMMON NORMALS: normal to inspection, capillary refill normal, no clubbing, cyanosis or edema, no calf tenderness and no pedal edema Neuro: SENSORIUM/ORIENTATION: Yes oriented to person, Yes oriented to place and Yes oriented to time Skin: COMMON NORMALS: no rashes or lesions noted GENERAL SKIN EXAM: no rashes or lesions noted Course Vital Signs: Vital signs: Vital Signs Temperature 99.1 F 01/14/25 08:26 Pulse Rate 115 H 01/14/25 08:26 Respiratory Rate 18 01/14/25 08:26 Blood Pressure 123/78 01/14/25 08:26 Pulse Oximetry 98 01/14/25 08:26 Oxygen Delivery Me thod Room Air 01/14/25 08:26 MDM - URI/Sore Throat Medical Decision Making Strep pharyngitis started on amoxicillin 875 twice daily for 10 days follow-up with primary care Medical Records I reviewed the patient's medical records. No radiology studies performed this visit Discharge Plan Discharge Patient Disposition: Home Clinical Impression: Acute streptococcal pharyngitis Condition: Stable Prescriptions: New amoxicillin 875 mg tablet 875 mg PO BID Qty: 20 0RF Discharge Orders: Discharge ED (Routine); Ordered 01/14/25 Ordered By: Jong Marcos Discharge Diet: Advance as tolerated Discharge Activity: Increase activity as tolerated Patient Instructions: Opioid Safety, Pain Management, Patient Portal & Pieter Instructions, Strep Throat (ED) Activity Restrictions/Additional Instructions: Thank you for choosing [facility] for your healthcare needs today. It is very important that you follow up as instructed or that you return to the Emergency Department should you have concerns or if your condition changes or worsens in any way. Emergency department visits are focused on emergent conditions, in some cases you may require further evaluation on an outpatient basis. You are seen in the emergency room with complaints of a sore throat. Your exam is consistent with strep pharyngitis. Started on amoxicillin 875 1 tablet twice a day for 10 days. You can also use [id number] cough cold remedies throat lozenges Chloraseptic etc. as needed for symptoms. Follow-up with primary care as needed. (Please note that included in your discharge packet is information concerning opioid safety and pain management. This information is given to all patients were discharged from the ER regardless of their discharge diagnosis or the medicines they usually take or are prescribed.) Print Language: Amharic Coding Level of Care Code ED Technical Asst for Vesta Briceño
[2025-01-14] MEDS: methylPREDNISolone sod succ 125 mg/2 mL INJ IM (09:25)
[2025-01-14 09:34] VITALS: BP 105/81; PULSE 117; O2SAT 97
== END 2025-01-14 09:35 | disposition home or self-care (01) ==
PROVIDERS: Emergency Provider Family Medicine
DX: J02.0 Streptococcal pharyngitis (principal)
CPT/HCPCS: 96372; 99284; J1885; J2919